=== PATIENT | male | born 1960 | race Caucasian/White ===

== ENCOUNTER 2017-07-28 14:00 | Day surgery (SDC) | payer OTHER ==
[~2017-07-28 14:00] MED LIST: ALPR.25 PO; ANTIBIOTIC; ASPI325 PO; ASPI81CH PO; CALCIUM-MAGNES1 EAC2 PO; CENTRUM MEN'S1 EACH PO; CENTRUM SILVER1 EAC2 PO; CEPH500 PO; Cleocin HCl300 MG PO; FURO40 PO; HYDR1TAB94 PO; K-Dur20 MEQ PO; LIDO4TS50 TOP; METO25 PO; METO50 PO; Norco 5-325 Ta1 EACH PO; XARELTO20 MG PO
== END 2017-07-28 23:32 | disposition home or self-care (01) ==
LOC: WOUND 14:00
PROC: 2W1RX6Z Compression of Left Lower Leg using Pressure Dressing (ICD-10-PCS; principal; 2017-07-28)
DX: Z48.00 Encounter for change or removal of nonsurgical wound dressing (principal); L97.821 Non-pressure chronic ulcer of other part of left lower leg limited to breakdown of skin; I87.2 Venous insufficiency (chronic) (peripheral); L03.116 Cellulitis of left lower limb; I70.202 Unspecified atherosclerosis of native arteries of extremities, left leg
CPT/HCPCS: G0463

== ENCOUNTER 2017-08-01 15:28 | Day surgery (SDC) | payer OTHER | END 2017-08-01 15:55 | disposition home or self-care (01) | LOC: ATC 15:28 | DX: Z48.00 Encounter for change or removal of nonsurgical wound dressing (principal); L97.821 Non-pressure chronic ulcer of other part of left lower leg limited to breakdown of skin; I87.2 Venous insufficiency (chronic) (peripheral); L03.116 Cellulitis of left lower limb; I70.202 Unspecified atherosclerosis of native arteries of extremities, left leg; I48.91 Unspecified atrial fibrillation; I82.502 Chronic embolism and thrombosis of unspecified deep veins of left lower extremity; Z79.01 Long term (current) use of anticoagulants | CPT/HCPCS: 99212 ==

== ENCOUNTER 2017-08-04 13:42 | Day surgery (SDC) | payer OTHER | END 2017-08-04 17:07 | disposition home or self-care (01) | LOC: WOUND 13:42 | PROC: 2W1RX6Z Compression of Left Lower Leg using Pressure Dressing (ICD-10-PCS; principal; 2017-08-04) | DX: Z48.00 Encounter for change or removal of nonsurgical wound dressing (principal); L97.821 Non-pressure chronic ulcer of other part of left lower leg limited to breakdown of skin; I87.2 Venous insufficiency (chronic) (peripheral); L03.116 Cellulitis of left lower limb; I70.202 Unspecified atherosclerosis of native arteries of extremities, left leg; I82.532 Chronic embolism and thrombosis of left popliteal vein; Z79.01 Long term (current) use of anticoagulants ==

== ENCOUNTER 2017-08-11 14:00 | Day surgery (SDC) | payer OTHER | END 2017-08-11 14:35 | disposition home or self-care (01) | LOC: WOUND 14:00 | PROC: 2W1RX6Z Compression of Left Lower Leg using Pressure Dressing (ICD-10-PCS; principal; 2017-08-11) | DX: Z48.00 Encounter for change or removal of nonsurgical wound dressing (principal); L97.821 Non-pressure chronic ulcer of other part of left lower leg limited to breakdown of skin; I87.2 Venous insufficiency (chronic) (peripheral); L03.116 Cellulitis of left lower limb; I70.202 Unspecified atherosclerosis of native arteries of extremities, left leg ==

== ENCOUNTER 2017-08-14 00:19 | Day surgery (SDC) | payer OTHER | END 2017-08-14 22:51 | disposition home or self-care (01) | LOC: ATC 00:19 | DX: L97.821 Non-pressure chronic ulcer of other part of left lower leg limited to breakdown of skin (principal); I87.2 Venous insufficiency (chronic) (peripheral); L03.116 Cellulitis of left lower limb; I70.202 Unspecified atherosclerosis of native arteries of extremities, left leg; I48.91 Unspecified atrial fibrillation; Z79.01 Long term (current) use of anticoagulants ==

== ENCOUNTER 2017-08-14 14:15 | Day surgery (SDC) | payer OTHER | END 2017-08-14 22:51 | disposition home or self-care (01) | LOC: WOUND 14:15 | PROC: 0HBLXZZ Excision of Left Lower Leg Skin, External Approach (ICD-10-PCS; principal; 2017-08-14) | DX: Z48.00 Encounter for change or removal of nonsurgical wound dressing (principal); L97.821 Non-pressure chronic ulcer of other part of left lower leg limited to breakdown of skin; I87.2 Venous insufficiency (chronic) (peripheral); L03.116 Cellulitis of left lower limb; I70.202 Unspecified atherosclerosis of native arteries of extremities, left leg ==

== ENCOUNTER 2017-08-16 00:19 | Day surgery (SDC) | payer OTHER | END 2017-08-16 22:56 | disposition home or self-care (01) | LOC: ATC 00:19 | DX: I87.2 Venous insufficiency (chronic) (peripheral) (principal); L97.821 Non-pressure chronic ulcer of other part of left lower leg limited to breakdown of skin; L03.116 Cellulitis of left lower limb; I70.202 Unspecified atherosclerosis of native arteries of extremities, left leg ==

== ENCOUNTER 2017-08-16 13:56 | Day surgery (SDC) | payer OTHER | END 2017-08-16 14:52 | disposition home or self-care (01) | LOC: WOUND 13:56 | PROC: 2W1RX6Z Compression of Left Lower Leg using Pressure Dressing (ICD-10-PCS; principal; 2017-08-16) | DX: Z48.00 Encounter for change or removal of nonsurgical wound dressing (principal); L97.821 Non-pressure chronic ulcer of other part of left lower leg limited to breakdown of skin; I87.2 Venous insufficiency (chronic) (peripheral); L03.116 Cellulitis of left lower limb; I70.202 Unspecified atherosclerosis of native arteries of extremities, left leg ==

== ENCOUNTER 2017-08-18 14:00 | Day surgery (SDC) | payer OTHER | END 2017-08-18 17:17 | disposition home or self-care (01) | LOC: WOUND 14:00 | DX: Z48.00 Encounter for change or removal of nonsurgical wound dressing (principal); L97.821 Non-pressure chronic ulcer of other part of left lower leg limited to breakdown of skin; I87.2 Venous insufficiency (chronic) (peripheral); L03.116 Cellulitis of left lower limb; I70.202 Unspecified atherosclerosis of native arteries of extremities, left leg; I82.532 Chronic embolism and thrombosis of left popliteal vein; Z79.01 Long term (current) use of anticoagulants ==

== ENCOUNTER 2017-08-22 11:15 | Day surgery (SDC) | payer OTHER | END 2017-08-22 12:56 | disposition home or self-care (01) | LOC: WOUND 11:15 | PROC: 2W1RX6Z Compression of Left Lower Leg using Pressure Dressing (ICD-10-PCS; principal; 2017-08-22) | DX: Z48.00 Encounter for change or removal of nonsurgical wound dressing (principal); I87.2 Venous insufficiency (chronic) (peripheral); L03.116 Cellulitis of left lower limb; I70.202 Unspecified atherosclerosis of native arteries of extremities, left leg; L97.822 Non-pressure chronic ulcer of other part of left lower leg with fat layer exposed | CPT/HCPCS: G0463 ==

== ENCOUNTER 2017-08-28 00:03 | Day surgery (SDC) | payer OTHER | END 2017-08-28 22:47 | disposition home or self-care (01) | LOC: WOUND 00:03 | PROC: 2W1RX6Z Compression of Left Lower Leg using Pressure Dressing (ICD-10-PCS; principal; 2017-08-28) | DX: Z48.00 Encounter for change or removal of nonsurgical wound dressing (principal); L97.821 Non-pressure chronic ulcer of other part of left lower leg limited to breakdown of skin; I87.2 Venous insufficiency (chronic) (peripheral); L03.116 Cellulitis of left lower limb; I70.202 Unspecified atherosclerosis of native arteries of extremities, left leg ==

== ENCOUNTER 2017-09-01 00:49 | Day surgery (SDC) | payer OTHER | END 2017-09-01 23:17 | disposition home or self-care (01) | LOC: WOUND 00:49 | PROC: 0HBLXZZ Excision of Left Lower Leg Skin, External Approach (ICD-10-PCS; principal; 2017-09-01) | DX: Z48.00 Encounter for change or removal of nonsurgical wound dressing (principal); L97.821 Non-pressure chronic ulcer of other part of left lower leg limited to breakdown of skin; I87.2 Venous insufficiency (chronic) (peripheral); L03.116 Cellulitis of left lower limb; I70.202 Unspecified atherosclerosis of native arteries of extremities, left leg; I82.532 Chronic embolism and thrombosis of left popliteal vein; Z79.01 Long term (current) use of anticoagulants | CPT/HCPCS: 36415; 80053; 84134; 85027; 85651; 86140; 87070; 87147; 87205; G0463 ==

== ENCOUNTER 2017-09-08 13:30 | Day surgery (SDC) | payer OTHER | END 2017-09-08 15:59 | disposition home or self-care (01) | LOC: WOUND 13:30 | PROC: 2W1RX6Z Compression of Left Lower Leg using Pressure Dressing (ICD-10-PCS; principal; 2017-09-08) | DX: Z48.00 Encounter for change or removal of nonsurgical wound dressing (principal); L97.821 Non-pressure chronic ulcer of other part of left lower leg limited to breakdown of skin; I87.2 Venous insufficiency (chronic) (peripheral); L03.116 Cellulitis of left lower limb; I70.202 Unspecified atherosclerosis of native arteries of extremities, left leg ==

== ENCOUNTER 2017-09-11 00:13 | Day surgery (SDC) | payer OTHER | END 2017-09-11 14:34 | disposition home or self-care (01) | LOC: WOUND 00:13 | PROC: 0HBLXZZ Excision of Left Lower Leg Skin, External Approach (ICD-10-PCS; principal; 2017-09-11) | DX: Z48.00 Encounter for change or removal of nonsurgical wound dressing (principal); L97.821 Non-pressure chronic ulcer of other part of left lower leg limited to breakdown of skin; I87.2 Venous insufficiency (chronic) (peripheral); L03.116 Cellulitis of left lower limb; I70.202 Unspecified atherosclerosis of native arteries of extremities, left leg; I89.0 Lymphedema, not elsewhere classified ==

== ENCOUNTER 2017-09-18 00:04 | Day surgery (SDC) | payer OTHER | END 2017-09-18 11:55 | disposition home or self-care (01) | LOC: WOUND 00:04 | PROC: 0HBLXZZ Excision of Left Lower Leg Skin, External Approach (ICD-10-PCS; principal; 2017-09-18) | PROC: 2W1RX6Z Compression of Left Lower Leg using Pressure Dressing (ICD-10-PCS; principal; 2017-09-18) | DX: Z48.00 Encounter for change or removal of nonsurgical wound dressing (principal); L97.821 Non-pressure chronic ulcer of other part of left lower leg limited to breakdown of skin; I87.2 Venous insufficiency (chronic) (peripheral); L03.116 Cellulitis of left lower limb; I70.202 Unspecified atherosclerosis of native arteries of extremities, left leg ==

== ENCOUNTER 2017-09-25 | Day surgery (SDC) | END 2017-09-25 13:16 | disposition home or self-care (01) ==

== ENCOUNTER 2017-10-02 10:27 | Day surgery (SDC) | payer OTHER | END 2017-10-02 22:50 | disposition home or self-care (01) | LOC: WOUND 10:27 | PROC: 2W1RX6Z Compression of Left Lower Leg using Pressure Dressing (ICD-10-PCS; principal; 2017-10-02) | DX: L97.821 Non-pressure chronic ulcer of other part of left lower leg limited to breakdown of skin (principal); I87.2 Venous insufficiency (chronic) (peripheral); L03.116 Cellulitis of left lower limb; I70.202 Unspecified atherosclerosis of native arteries of extremities, left leg; Z79.01 Long term (current) use of anticoagulants ==

== ENCOUNTER 2017-10-03 03:34 | Day surgery (SDC) | payer OTHER | END 2017-10-03 23:04 | disposition home or self-care (01) | LOC: WOUND 03:34 | PROC: 0HBLXZZ Excision of Left Lower Leg Skin, External Approach (ICD-10-PCS; principal; 2017-10-03) | DX: L97.821 Non-pressure chronic ulcer of other part of left lower leg limited to breakdown of skin (principal); I87.2 Venous insufficiency (chronic) (peripheral); L03.116 Cellulitis of left lower limb; I70.202 Unspecified atherosclerosis of native arteries of extremities, left leg | CPT/HCPCS: G0463 ==

== ENCOUNTER 2017-10-09 10:27 | Day surgery (SDC) | payer OTHER | END 2017-10-09 23:03 | disposition home or self-care (01) | LOC: WOUND 10:27 | PROC: 0HBLXZZ Excision of Left Lower Leg Skin, External Approach (ICD-10-PCS; principal; 2017-10-09) | DX: L97.821 Non-pressure chronic ulcer of other part of left lower leg limited to breakdown of skin (principal); I87.2 Venous insufficiency (chronic) (peripheral); L03.116 Cellulitis of left lower limb; I70.202 Unspecified atherosclerosis of native arteries of extremities, left leg ==

== ENCOUNTER 2017-10-16 10:24 | Day surgery (SDC) | payer OTHER | END 2017-10-16 16:49 | disposition home or self-care (01) | LOC: WOUND 10:24 | PROC: 0HBLXZZ Excision of Left Lower Leg Skin, External Approach (ICD-10-PCS; principal; 2017-10-16) | DX: L97.821 Non-pressure chronic ulcer of other part of left lower leg limited to breakdown of skin (principal); I87.2 Venous insufficiency (chronic) (peripheral); L03.116 Cellulitis of left lower limb; I70.202 Unspecified atherosclerosis of native arteries of extremities, left leg ==

== ENCOUNTER 2017-10-23 00:36 | Day surgery (SDC) | payer OTHER | END 2017-10-23 11:45 | disposition home or self-care (01) | LOC: WOUND 00:36 | PROC: 2W1RX6Z Compression of Left Lower Leg using Pressure Dressing (ICD-10-PCS; principal; 2017-10-23) | DX: Z48.00 Encounter for change or removal of nonsurgical wound dressing (principal); L03.116 Cellulitis of left lower limb; I82.532 Chronic embolism and thrombosis of left popliteal vein; I82.592 Chronic embolism and thrombosis of other specified deep vein of left lower extremity; L97.821 Non-pressure chronic ulcer of other part of left lower leg limited to breakdown of skin; I70.202 Unspecified atherosclerosis of native arteries of extremities, left leg; Z79.01 Long term (current) use of anticoagulants ==

== ENCOUNTER 2017-10-31 00:27 | Day surgery (SDC) | payer OTHER | END 2017-10-31 11:31 | disposition home or self-care (01) | LOC: WOUND 00:27 | PROC: 0HBLXZZ Excision of Left Lower Leg Skin, External Approach (ICD-10-PCS; principal; 2017-10-31) | DX: L97.822 Non-pressure chronic ulcer of other part of left lower leg with fat layer exposed (principal); I87.2 Venous insufficiency (chronic) (peripheral); L03.116 Cellulitis of left lower limb; I70.202 Unspecified atherosclerosis of native arteries of extremities, left leg | CPT/HCPCS: G0463 ==

== ENCOUNTER 2017-11-06 10:59 | Day surgery (SDC) | payer OTHER | END 2017-11-06 12:06 | disposition home or self-care (01) | LOC: WOUND 10:59 | PROC: 0HBLXZZ Excision of Left Lower Leg Skin, External Approach (ICD-10-PCS; principal; 2017-11-06) | PROC: 2W1RX6Z Compression of Left Lower Leg using Pressure Dressing (ICD-10-PCS; principal; 2017-11-06) | DX: L97.822 Non-pressure chronic ulcer of other part of left lower leg with fat layer exposed (principal); I87.2 Venous insufficiency (chronic) (peripheral); L03.116 Cellulitis of left lower limb; I70.202 Unspecified atherosclerosis of native arteries of extremities, left leg ==

== ENCOUNTER 2017-11-20 11:10 | Day surgery (SDC) | payer OTHER | END 2017-11-20 23:05 | disposition home or self-care (01) | LOC: WOUND 11:10 | PROC: 2W1RX6Z Compression of Left Lower Leg using Pressure Dressing (ICD-10-PCS; principal; 2017-11-20) | PROC: 0HBLXZZ Excision of Left Lower Leg Skin, External Approach (ICD-10-PCS; principal; 2017-11-20) | DX: L97.821 Non-pressure chronic ulcer of other part of left lower leg limited to breakdown of skin (principal); I87.2 Venous insufficiency (chronic) (peripheral); L03.116 Cellulitis of left lower limb; I70.202 Unspecified atherosclerosis of native arteries of extremities, left leg | CPT/HCPCS: G0463 ==

== ENCOUNTER 2017-11-27 11:08 | Day surgery (SDC) | payer OTHER | END 2017-11-27 22:36 | disposition home or self-care (01) | LOC: WOUND 11:08 | PROC: 0HBLXZZ Excision of Left Lower Leg Skin, External Approach (ICD-10-PCS; principal; 2017-11-27) | DX: L97.821 Non-pressure chronic ulcer of other part of left lower leg limited to breakdown of skin (principal); I87.2 Venous insufficiency (chronic) (peripheral); L03.116 Cellulitis of left lower limb; I70.202 Unspecified atherosclerosis of native arteries of extremities, left leg ==

== ENCOUNTER 2017-12-04 10:59 | Day surgery (SDC) | payer OTHER | END 2017-12-04 22:40 | disposition home or self-care (01) | LOC: WOUND 10:59 | PROC: 0HBLXZZ Excision of Left Lower Leg Skin, External Approach (ICD-10-PCS; principal; 2017-12-04) | DX: L97.821 Non-pressure chronic ulcer of other part of left lower leg limited to breakdown of skin (principal); I87.2 Venous insufficiency (chronic) (peripheral); L03.116 Cellulitis of left lower limb ==

== ENCOUNTER 2017-12-11 09:14 | Day surgery (SDC) | payer OTHER | END 2017-12-11 22:45 | disposition home or self-care (01) | LOC: WOUND 09:14 | PROC: 0HBLXZZ Excision of Left Lower Leg Skin, External Approach (ICD-10-PCS; principal; 2017-12-11) | DX: L97.222 Non-pressure chronic ulcer of left calf with fat layer exposed (principal); I87.2 Venous insufficiency (chronic) (peripheral); L03.116 Cellulitis of left lower limb; I70.202 Unspecified atherosclerosis of native arteries of extremities, left leg | CPT/HCPCS: G0463 ==

== ENCOUNTER 2017-12-18 11:14 | Day surgery (SDC) | payer OTHER | END 2017-12-18 11:57 | disposition home or self-care (01) | LOC: WOUND 11:14 | PROC: 2W1MX6Z Compression of Left Lower Extremity using Pressure Dressing (ICD-10-PCS; principal; 2017-12-18) | DX: L97.229 Non-pressure chronic ulcer of left calf with unspecified severity (principal); L97.821 Non-pressure chronic ulcer of other part of left lower leg limited to breakdown of skin; L03.116 Cellulitis of left lower limb; I87.2 Venous insufficiency (chronic) (peripheral) | CPT/HCPCS: G0463 ==

== ENCOUNTER 2017-12-26 11:15 | Day surgery (SDC) | payer OTHER | END 2017-12-26 12:09 | disposition home or self-care (01) | LOC: WOUND 11:15 | PROC: 2W1MX6Z Compression of Left Lower Extremity using Pressure Dressing (ICD-10-PCS; principal; 2017-12-26) | PROC: 0HBLXZZ Excision of Left Lower Leg Skin, External Approach (ICD-10-PCS; principal; 2017-12-26) | DX: L97.228 Non-pressure chronic ulcer of left calf with other specified severity (principal); I87.2 Venous insufficiency (chronic) (peripheral); L03.116 Cellulitis of left lower limb; I70.202 Unspecified atherosclerosis of native arteries of extremities, left leg | CPT/HCPCS: G0463 ==

== ENCOUNTER 2018-01-01 11:15 | Day surgery (SDC) | payer OTHER | END 2018-01-01 13:50 | disposition home or self-care (01) | LOC: WOUND 11:15 | PROC: 2W1RX6Z Compression of Left Lower Leg using Pressure Dressing (ICD-10-PCS; principal; 2018-01-01) | DX: L97.821 Non-pressure chronic ulcer of other part of left lower leg limited to breakdown of skin (principal); I87.2 Venous insufficiency (chronic) (peripheral); L03.116 Cellulitis of left lower limb | CPT/HCPCS: G0463 ==

== ENCOUNTER 2018-01-08 11:15 | Day surgery (SDC) | payer OTHER | END 2018-01-08 11:59 | disposition home or self-care (01) | LOC: WOUND 11:15 | PROC: 2W1RX6Z Compression of Left Lower Leg using Pressure Dressing (ICD-10-PCS; principal; 2018-01-08) | PROC: 0HBLXZZ Excision of Left Lower Leg Skin, External Approach (ICD-10-PCS; principal; 2018-01-08) | DX: L97.822 Non-pressure chronic ulcer of other part of left lower leg with fat layer exposed (principal); I87.2 Venous insufficiency (chronic) (peripheral); L03.116 Cellulitis of left lower limb; I70.202 Unspecified atherosclerosis of native arteries of extremities, left leg ==

== ENCOUNTER 2018-01-15 11:01 | Day surgery (SDC) | payer OTHER | END 2018-01-15 23:13 | disposition home or self-care (01) | LOC: WOUND 11:01 | PROC: 2W1RX6Z Compression of Left Lower Leg using Pressure Dressing (ICD-10-PCS; principal; 2018-01-15) | PROC: 0HBLXZZ Excision of Left Lower Leg Skin, External Approach (ICD-10-PCS; principal; 2018-01-15) | DX: L97.822 Non-pressure chronic ulcer of other part of left lower leg with fat layer exposed (principal); I87.2 Venous insufficiency (chronic) (peripheral); L03.116 Cellulitis of left lower limb; I70.202 Unspecified atherosclerosis of native arteries of extremities, left leg ==

== ENCOUNTER 2018-01-22 11:01 | Day surgery (SDC) | payer OTHER | END 2018-01-22 13:52 | disposition home or self-care (01) | LOC: WOUND 11:01 | PROC: 0HBLXZZ Excision of Left Lower Leg Skin, External Approach (ICD-10-PCS; principal; 2018-01-22) | PROC: 2W1RX6Z Compression of Left Lower Leg using Pressure Dressing (ICD-10-PCS; principal; 2018-01-22) | DX: L97.822 Non-pressure chronic ulcer of other part of left lower leg with fat layer exposed (principal); I87.2 Venous insufficiency (chronic) (peripheral); L03.116 Cellulitis of left lower limb; I70.202 Unspecified atherosclerosis of native arteries of extremities, left leg ==

== ENCOUNTER 2018-01-29 12:26 | Day surgery (SDC) | payer OTHER | END 2018-01-29 16:01 | disposition home or self-care (01) | LOC: WOUND 12:26 | PROC: 2W1RX6Z Compression of Left Lower Leg using Pressure Dressing (ICD-10-PCS; principal; 2018-01-29) | DX: Z48.00 Encounter for change or removal of nonsurgical wound dressing (principal); L97.821 Non-pressure chronic ulcer of other part of left lower leg limited to breakdown of skin; I87.2 Venous insufficiency (chronic) (peripheral); L03.116 Cellulitis of left lower limb; I70.202 Unspecified atherosclerosis of native arteries of extremities, left leg; I82.502 Chronic embolism and thrombosis of unspecified deep veins of left lower extremity; Z79.01 Long term (current) use of anticoagulants ==

== ENCOUNTER 2018-02-05 11:15 | Day surgery (SDC) | payer OTHER | END 2018-02-05 12:35 | disposition home or self-care (01) | LOC: WOUND 11:15 | PROC: 0JBP0ZZ Excision of Left Lower Leg Subcutaneous Tissue and Fascia, Open Approach (ICD-10-PCS; principal; 2018-02-05) | PROC: 2W1RX6Z Compression of Left Lower Leg using Pressure Dressing (ICD-10-PCS; principal; 2018-02-05) | DX: Z48.00 Encounter for change or removal of nonsurgical wound dressing (principal); I70.242 Atherosclerosis of native arteries of left leg with ulceration of calf; L97.222 Non-pressure chronic ulcer of left calf with fat layer exposed; L03.116 Cellulitis of left lower limb; R60.0 Localized edema; I87.2 Venous insufficiency (chronic) (peripheral); I82.532 Chronic embolism and thrombosis of left popliteal vein; Z79.01 Long term (current) use of anticoagulants ==

== ENCOUNTER 2018-02-12 11:15 | Day surgery (SDC) | payer OTHER | END 2018-02-12 12:21 | disposition home or self-care (01) | LOC: WOUND 11:15 | DX: I70.248 Atherosclerosis of native arteries of left leg with ulceration of other part of lower leg (principal); L97.821 Non-pressure chronic ulcer of other part of left lower leg limited to breakdown of skin; L97.822 Non-pressure chronic ulcer of other part of left lower leg with fat layer exposed; L03.116 Cellulitis of left lower limb; I87.2 Venous insufficiency (chronic) (peripheral); R60.0 Localized edema; Z86.718 Personal history of other venous thrombosis and embolism; Z79.01 Long term (current) use of anticoagulants | CPT/HCPCS: G0463 ==

== ENCOUNTER 2018-03-14 00:50 | Day surgery (SDC) | payer OTHER ==
[2018-03-14] MEDS ORDERED: ASPI81CH PO (10:51)
[2018-03-14] MEDS ORDERED: WARF5 PO (10:51)
== END 2018-03-14 11:30 | disposition home or self-care (01) ==
LOC: LAB 00:50 → ATC 00:50
DX: I82.90 Acute embolism and thrombosis of unspecified vein (principal); E66.01 Morbid (severe) obesity due to excess calories; Z79.01 Long term (current) use of anticoagulants
CPT/HCPCS: 36416; 85610; 99214

== ENCOUNTER 2018-03-16 00:25 | Day surgery (SDC) | payer OTHER ==
[~2018-03-16 00:25] MED LIST changes: +WARF5 PO
== END 2018-03-16 15:39 | disposition home or self-care (01) ==
LOC: ATC 00:25
DX: Z48.00 Encounter for change or removal of nonsurgical wound dressing (principal); S81.802D Unspecified open wound, left lower leg, subsequent encounter; Z87.891 Personal history of nicotine dependence; E66.01 Morbid (severe) obesity due to excess calories; Z68.42 Body mass index [BMI] 45.0-49.9, adult; I48.91 Unspecified atrial fibrillation; I50.9 Heart failure, unspecified
CPT/HCPCS: 99213

== ENCOUNTER 2018-03-20 00:07 | Day surgery (SDC) | payer OTHER | END 2018-03-20 11:12 | disposition home or self-care (01) | LOC: ATC 00:07 | DX: Z48.00 Encounter for change or removal of nonsurgical wound dressing (principal); S81.802D Unspecified open wound, left lower leg, subsequent encounter; I50.9 Heart failure, unspecified; I48.91 Unspecified atrial fibrillation; E66.01 Morbid (severe) obesity due to excess calories; Z68.42 Body mass index [BMI] 45.0-49.9, adult; Z86.718 Personal history of other venous thrombosis and embolism; Z87.891 Personal history of nicotine dependence; Z79.899 Other long term (current) drug therapy | CPT/HCPCS: 99212 ==

== ENCOUNTER 2018-03-23 00:14 | Day surgery (SDC) | payer OTHER | END 2018-03-23 22:45 | disposition home or self-care (01) | LOC: ATC 00:14 | DX: Z48.00 Encounter for change or removal of nonsurgical wound dressing (principal); S81.802D Unspecified open wound, left lower leg, subsequent encounter | CPT/HCPCS: 99214 ==

== ENCOUNTER 2018-03-26 01:42 | Day surgery (SDC) | payer OTHER | END 2018-03-26 22:40 | disposition home or self-care (01) | LOC: ATC 01:42 → LAB 01:42 → ATC 14:12 | DX: Z48.00 Encounter for change or removal of nonsurgical wound dressing (principal); S81.802D Unspecified open wound, left lower leg, subsequent encounter; I82.90 Acute embolism and thrombosis of unspecified vein; I50.9 Heart failure, unspecified; I48.91 Unspecified atrial fibrillation; Z79.899 Other long term (current) drug therapy; Z87.891 Personal history of nicotine dependence; E66.01 Morbid (severe) obesity due to excess calories; Z68.42 Body mass index [BMI] 45.0-49.9, adult | CPT/HCPCS: 36416; 85610; 99212 ==

== ENCOUNTER 2018-03-29 00:12 | Day surgery (SDC) | payer OTHER | END 2018-03-29 11:01 | disposition home or self-care (01) | LOC: ATC 00:12 | DX: S81.802D Unspecified open wound, left lower leg, subsequent encounter (principal); Z86.718 Personal history of other venous thrombosis and embolism; R60.0 Localized edema; I73.9 Peripheral vascular disease, unspecified; E66.01 Morbid (severe) obesity due to excess calories; I48.91 Unspecified atrial fibrillation; Z79.01 Long term (current) use of anticoagulants | CPT/HCPCS: 99213 ==

== ENCOUNTER 2018-04-03 00:13 | Day surgery (SDC) | payer OTHER | END 2018-04-03 11:03 | disposition home or self-care (01) | LOC: ATC 00:13 | DX: L97.821 Non-pressure chronic ulcer of other part of left lower leg limited to breakdown of skin (principal); I87.2 Venous insufficiency (chronic) (peripheral); L03.116 Cellulitis of left lower limb; I70.202 Unspecified atherosclerosis of native arteries of extremities, left leg | CPT/HCPCS: 99214 ==

== ENCOUNTER 2018-04-11 15:08 | Day surgery (SDC) | payer OTHER | END 2018-04-11 15:37 | disposition home or self-care (01) | LOC: ATC 15:08 | DX: L97.821 Non-pressure chronic ulcer of other part of left lower leg limited to breakdown of skin (principal); I87.2 Venous insufficiency (chronic) (peripheral); L03.116 Cellulitis of left lower limb; I70.202 Unspecified atherosclerosis of native arteries of extremities, left leg | CPT/HCPCS: 99213 ==

== ENCOUNTER 2018-04-18 14:53 | Day surgery (SDC) | payer OTHER | END 2018-04-18 22:41 | disposition home or self-care (01) | LOC: ATC 14:53 | DX: L97.821 Non-pressure chronic ulcer of other part of left lower leg limited to breakdown of skin (principal); I87.2 Venous insufficiency (chronic) (peripheral); L03.116 Cellulitis of left lower limb; I70.202 Unspecified atherosclerosis of native arteries of extremities, left leg; Z86.718 Personal history of other venous thrombosis and embolism; I48.91 Unspecified atrial fibrillation | CPT/HCPCS: 36416; 85610; 99212 ==

== ENCOUNTER 2018-04-20 00:33 | Day surgery (SDC) | payer OTHER | END 2018-04-20 22:36 | disposition home or self-care (01) | LOC: WOUND 00:33 | DX: L97.222 Non-pressure chronic ulcer of left calf with fat layer exposed (principal); I73.9 Peripheral vascular disease, unspecified; Z86.718 Personal history of other venous thrombosis and embolism; R60.0 Localized edema; I48.2 Chronic atrial fibrillation; I50.20 Unspecified systolic (congestive) heart failure; Z87.891 Personal history of nicotine dependence | CPT/HCPCS: G0463 ==

== ENCOUNTER 2018-04-24 14:00 | Day surgery (SDC) | payer OTHER | END 2018-04-24 15:35 | disposition home or self-care (01) | LOC: WOUND 14:00 | DX: L97.222 Non-pressure chronic ulcer of left calf with fat layer exposed (principal); I73.9 Peripheral vascular disease, unspecified; R60.0 Localized edema; I48.2 Chronic atrial fibrillation; I50.20 Unspecified systolic (congestive) heart failure; Z86.718 Personal history of other venous thrombosis and embolism ==

== ENCOUNTER 2018-04-27 00:14 | Day surgery (SDC) | payer OTHER | END 2018-04-27 22:37 | disposition home or self-care (01) | LOC: WOUND 00:14 | DX: L97.222 Non-pressure chronic ulcer of left calf with fat layer exposed (principal); I73.9 Peripheral vascular disease, unspecified; Z86.718 Personal history of other venous thrombosis and embolism; R60.0 Localized edema; I48.2 Chronic atrial fibrillation; I50.20 Unspecified systolic (congestive) heart failure ==

== ENCOUNTER 2018-05-01 08:58 | Day surgery (SDC) | payer OTHER | END 2018-05-01 22:35 | disposition home or self-care (01) | LOC: WOUND 08:58 | DX: L97.222 Non-pressure chronic ulcer of left calf with fat layer exposed (principal); I73.9 Peripheral vascular disease, unspecified; R60.0 Localized edema; I48.2 Chronic atrial fibrillation; I50.20 Unspecified systolic (congestive) heart failure; Q84.5 Enlarged and hypertrophic nails; Z86.718 Personal history of other venous thrombosis and embolism ==

== ENCOUNTER 2018-05-04 08:03 | Day surgery (SDC) | payer OTHER | END 2018-05-04 22:37 | disposition home or self-care (01) | LOC: WOUND 08:03 | DX: L97.222 Non-pressure chronic ulcer of left calf with fat layer exposed (principal); I73.9 Peripheral vascular disease, unspecified; Z86.718 Personal history of other venous thrombosis and embolism; R60.0 Localized edema; I48.2 Chronic atrial fibrillation; I50.20 Unspecified systolic (congestive) heart failure; Q84.5 Enlarged and hypertrophic nails ==

== ENCOUNTER 2018-05-29 00:16 | Day surgery (SDC) | payer OTHER | END 2018-05-29 22:58 | disposition home or self-care (01) | LOC: WOUND 00:16 | DX: L97.222 Non-pressure chronic ulcer of left calf with fat layer exposed (principal); I73.9 Peripheral vascular disease, unspecified; Z86.718 Personal history of other venous thrombosis and embolism; R60.0 Localized edema; I48.2 Chronic atrial fibrillation; I50.20 Unspecified systolic (congestive) heart failure ==

== ENCOUNTER 2018-07-17 00:10 | Day surgery (SDC) | payer OTHER | END 2018-07-17 22:38 | disposition home or self-care (01) | LOC: WOUND 00:10 | DX: L97.222 Non-pressure chronic ulcer of left calf with fat layer exposed (principal); L97.821 Non-pressure chronic ulcer of other part of left lower leg limited to breakdown of skin; I73.9 Peripheral vascular disease, unspecified; Z86.718 Personal history of other venous thrombosis and embolism; R60.0 Localized edema; I48.2 Chronic atrial fibrillation; I50.20 Unspecified systolic (congestive) heart failure ==

== ENCOUNTER 2018-07-20 00:14 | Day surgery (SDC) | payer OTHER | END 2018-07-20 22:45 | disposition home or self-care (01) | LOC: WOUND 00:14 | DX: L97.222 Non-pressure chronic ulcer of left calf with fat layer exposed (principal); S81.802A Unspecified open wound, left lower leg, initial encounter; I73.9 Peripheral vascular disease, unspecified; Z86.718 Personal history of other venous thrombosis and embolism; R60.0 Localized edema; I48.2 Chronic atrial fibrillation; I50.20 Unspecified systolic (congestive) heart failure | CPT/HCPCS: G0463 ==

== ENCOUNTER 2018-07-27 13:09 | Day surgery (SDC) | payer OTHER | END 2018-07-27 23:07 | disposition home or self-care (01) | LOC: WOUND 13:09 | DX: L97.222 Non-pressure chronic ulcer of left calf with fat layer exposed (principal); L97.821 Non-pressure chronic ulcer of other part of left lower leg limited to breakdown of skin; I73.9 Peripheral vascular disease, unspecified; Z86.718 Personal history of other venous thrombosis and embolism; R60.0 Localized edema; I48.2 Chronic atrial fibrillation; I50.20 Unspecified systolic (congestive) heart failure ==

== ENCOUNTER 2018-08-03 13:14 | Day surgery (SDC) | payer OTHER | END 2018-08-03 22:43 | disposition home or self-care (01) | LOC: WOUND 13:14 | DX: L97.222 Non-pressure chronic ulcer of left calf with fat layer exposed (principal); S81.802D Unspecified open wound, left lower leg, subsequent encounter; I73.9 Peripheral vascular disease, unspecified; R60.0 Localized edema; I48.2 Chronic atrial fibrillation; I50.20 Unspecified systolic (congestive) heart failure; Z86.718 Personal history of other venous thrombosis and embolism ==

== ENCOUNTER 2018-08-10 00:13 | Day surgery (SDC) | payer OTHER | END 2018-08-10 22:51 | disposition home or self-care (01) | LOC: WOUND 00:13 | DX: L97.222 Non-pressure chronic ulcer of left calf with fat layer exposed (principal); L97.821 Non-pressure chronic ulcer of other part of left lower leg limited to breakdown of skin; I73.9 Peripheral vascular disease, unspecified; Z86.718 Personal history of other venous thrombosis and embolism; R60.0 Localized edema ==

== ENCOUNTER 2018-08-17 00:58 | Day surgery (SDC) | payer OTHER | END 2018-08-17 23:52 | disposition home or self-care (01) | LOC: WOUND 00:58 | PROC: 0HBLXZZ Excision of Left Lower Leg Skin, External Approach (ICD-10-PCS; principal; 2018-08-17) | DX: L97.222 Non-pressure chronic ulcer of left calf with fat layer exposed (principal); L97.822 Non-pressure chronic ulcer of other part of left lower leg with fat layer exposed; L97.929 Non-pressure chronic ulcer of unspecified part of left lower leg with unspecified severity; S81.802A Unspecified open wound, left lower leg, initial encounter; I73.9 Peripheral vascular disease, unspecified ==

== ENCOUNTER 2018-08-24 15:11 | Inpatient (IN) | payer OTHER ==
[~2018-08-24] VITALS: Ht 188 cm; Wt 173.5 kg
[2018-08-24 15:59] LABS: BASOPHILS ABSOLUTE AUTO 0.07 K/mm3 (0.00-0.23); BASOPHILS PERCENT AUTO 1 % (0-2); EOSINOPHILS ABSOLUTE AUTO 0.18 K/mm3 (0.00-0.68); EOSINOPHILS PERCENT AUTO 3 % (0-6); Hematocrit 43.4 % (37.0-53.0); IMMATURE GRAN ABSOLUTE AUTO 0.01 K/mm3 (0.00-0.10); IMMATURE GRAN PERCENT AUTO 0 % (0-1); LYMPHOCYTES ABSOLUTE AUTO 1.64 K/mm3 (0.84-5.20); LYMPHOCYTES PERCENT AUTO 24 % (21-46); MONOCYTES ABSOLUTE AUTO 0.52 K/mm3 (0.16-1.47); MONOCYTES PERCENT AUTO 8 % (4-13); Mean Corpuscular HGB 34.5 pg (26.0-34.0); Mean Corpuscular HGB Conc 34.6 g/dL (31.5-36.5); Mean Corpuscular Volume 100 fL (80-100); Mean Platelet Volume 10.7 fL (9.1-12.4); NEUTROPHILS ABSOLUTE AUTO 4.51 K/mm3 (1.96-9.15); NEUTROPHILS PERCENT AUTO 65 % (41-73); Platelet Count 210 K/mm3 (150-400); RDW Standard Deviation 44.6 fL (35.1-46.3); Red Blood Cell Count 4.35 M/mm3 (4.30-5.90); White Blood Cell Count 6.93 K/mm3 (4.00-11.30)
[2018-08-24 16:18] LABS: Alanine Aminotransfer (ALT/SGP 26 U/L (12-78); Albumin, Blood 3.3 g/dL (3.4-5.0); Albumin/Globulin Ratio 0.7 (0.8-1.8); Alk Phos 122 U/L (50-136); Anion Gap 6 mmol/L (6-16); Aspartate Aminotrans (AST/SGOT 38 U/L (12-37); Blood Urea Nitrogen 9 mg/dL (8-24); Bun/Creatinine Ratio 10.2 (12.0-20.0); CO2, Blood 30 mmol/L (21-32); Calcium, Blood 8.4 mg/dL (8.5-10.1); Chloride, Blood 105 mmol/L (98-108); Creatinine, Blood 0.88 mg/dL (0.60-1.20); Globulin, Blood 4.9 g/dL (2.2-4.0); Glomerular Filtration Rate >60 (60-); Glucose, Blood 91 mg/dL (70-99); Potassium, Blood 4.7 mmol/L (3.5-5.5); Sodium, Blood 141 mmol/L (136-145); Total Protein, Blood 8.2 g/dL (6.4-8.2)
[2018-08-24 17:53] LABS: International Normalized Ratio 2.6; Prothrombin Time Results 25.3 Sec (9.7-11.5)
[2018-08-25 05:34] LABS: BASOPHILS ABSOLUTE AUTO 0.04 K/mm3 (0.00-0.23); BASOPHILS PERCENT AUTO 1 % (0-2); EOSINOPHILS ABSOLUTE AUTO 0.12 K/mm3 (0.00-0.68); EOSINOPHILS PERCENT AUTO 2 % (0-6); Hematocrit 42.1 % (37.0-53.0); IMMATURE GRAN ABSOLUTE AUTO 0.02 K/mm3 (0.00-0.10); IMMATURE GRAN PERCENT AUTO 0 % (0-1); LYMPHOCYTES ABSOLUTE AUTO 1.46 K/mm3 (0.84-5.20); LYMPHOCYTES PERCENT AUTO 20 % (21-46); MONOCYTES ABSOLUTE AUTO 0.66 K/mm3 (0.16-1.47); MONOCYTES PERCENT AUTO 9 % (4-13); Mean Corpuscular HGB 33.1 pg (26.0-34.0); Mean Corpuscular HGB Conc 33.3 g/dL (31.5-36.5); Mean Corpuscular Volume 100 fL (80-100); Mean Platelet Volume 10.8 fL (9.1-12.4); NEUTROPHILS PERCENT AUTO 68 % (41-73); Platelet Count 198 K/mm3 (150-400); RDW Standard Deviation 43.5 fL (35.1-46.3); Red Blood Cell Count 4.23 M/mm3 (4.30-5.90)
[2018-08-25 05:48] LABS: International Normalized Ratio 2.3; Prothrombin Time Results 22.6 Sec (9.7-11.5)
[2018-08-25 05:51] LABS: Anion Gap 6 mmol/L (6-16); Blood Urea Nitrogen 12 mg/dL (8-24); Bun/Creatinine Ratio 12.8 (12.0-20.0); CO2, Blood 32 mmol/L (21-32); Calcium, Blood 8.4 mg/dL (8.5-10.1); Chloride, Blood 103 mmol/L (98-108); Creatinine, Blood 0.94 mg/dL (0.60-1.20); Glomerular Filtration Rate >60 (60-); Glucose, Blood 94 mg/dL (70-99); Sodium, Blood 141 mmol/L (136-145)
--- NOTE | 2018-08-25 06:26 | NUR ---
SHIFT SUMMARY ARRIVED TO MEDICAL FLOOR @ 2014 VIA WHEELCHAIR. SELF TRANSFER FROM WHEELCHAIR TO BED. ORIENTED TO ROOM AND CALL SYSTEM. INDEPENDENT IN THE ROOM. A/O X4, ABLE TO MAKE NEEDS KNOWN. COOPERATIVE WITH CARE. ANSWERS QUESTIONS APPROPRIATELY. C/O PAIN/DISCOMFORT TO LLE WHILE ELEVATED; MEDICATED PER EMAR. PICTURES TAKEN OF WOUNDS TO LLE. WOUND CARE COMPLETED AND WRAPPED (SEE PROCESS INTERVENTION DOCUMENTATION). NO ACUTE CHANGES NOTED OVERNIGHT. VSS WITH PULSE ELEVATED. WCTM. BED IN LOWEST POSITION. CALL LIGHT AND BELONGING IN REACH. REPORT TO ONCOMING RN.
--- NOTE | 2018-08-25 17:26 | NUR ---
PT AOX4 AND COOPERATIVE OF ALL CARE. PT RESTING IN BED, BUT WAS UP TO AMBULATE TODAY. PT NEEDED LE REWRAPPED ON L LEG DUE TO DRAINAGE. PT TOLERATED WELL. NO PAIN REPORTED AT THIS TIME. NO DISTRESS NOTED.
[2018-08-26 05:25] LABS: BASOPHILS ABSOLUTE AUTO 0.05 K/mm3 (0.00-0.23); BASOPHILS PERCENT AUTO 1 % (0-2); EOSINOPHILS ABSOLUTE AUTO 0.23 K/mm3 (0.00-0.68); EOSINOPHILS PERCENT AUTO 3 % (0-6); Hematocrit 43.3 % (37.0-53.0); Hemoglobin 14.7 g/dL (13.5-17.5); IMMATURE GRAN ABSOLUTE AUTO 0.02 K/mm3 (0.00-0.10); IMMATURE GRAN PERCENT AUTO 0 % (0-1); LYMPHOCYTES ABSOLUTE AUTO 2.06 K/mm3 (0.84-5.20); LYMPHOCYTES PERCENT AUTO 28 % (21-46); MONOCYTES ABSOLUTE AUTO 0.58 K/mm3 (0.16-1.47); MONOCYTES PERCENT AUTO 8 % (4-13); Mean Corpuscular HGB 33.3 pg (26.0-34.0); Mean Corpuscular HGB Conc 33.9 g/dL (31.5-36.5); Mean Corpuscular Volume 98 fL (80-100); Mean Platelet Volume 10.6 fL (9.1-12.4); NEUTROPHILS ABSOLUTE AUTO 4.44 K/mm3 (1.96-9.15); NEUTROPHILS PERCENT AUTO 60 % (41-73); Platelet Count 200 K/mm3 (150-400); RDW Coefficient Variation 11.9 % (11.7-14.2); RDW Standard Deviation 42.9 fL (35.1-46.3); Red Blood Cell Count 4.42 M/mm3 (4.30-5.90); White Blood Cell Count 7.38 K/mm3 (4.00-11.30)
--- NOTE | 2018-08-26 05:41 | NUR ---
SHIFT SUMMARY A/O X4, ABLE TO MAKE NEEDS KNOWN. COOPERATIVE WITH CARE. ANSWERS QUESTIONS APPROPRIATELY. INDPENDENT IN THE ROOM; TAKES WALKS IN HALLWAY. NOTICABLY SOB ON RETURN. LLE NOTICABLY LARGER THAN RLE. NO ACUTE CHANGES OVERNIGHT. APPEARED TO REST MUCH OF SHIFT. BED IN LOWEST POSITION. CALL LIGHT AND BELONGINGS WITHIN REACH. WCTM. REPORT TO ONCOMING RN.
[2018-08-26 05:55] LABS: Anion Gap 7 mmol/L (6-16); Blood Urea Nitrogen 13 mg/dL (8-24); Bun/Creatinine Ratio 14.1 (12.0-20.0); CO2, Blood 31 mmol/L (21-32); Calcium, Blood 8.2 mg/dL (8.5-10.1); Chloride, Blood 103 mmol/L (98-108); Creatinine, Blood 0.92 mg/dL (0.60-1.20); Glomerular Filtration Rate >60 (60-); Glucose, Blood 98 mg/dL (70-99); Potassium, Blood 3.7 mmol/L (3.5-5.5); Sodium, Blood 141 mmol/L (136-145)
[2018-08-26 13:47] LABS: International Normalized Ratio 1.65; Prothrombin Time Results 16.7 Sec (9.7-11.5)
--- NOTE | 2018-08-26 14:34 | NUR ---
TELEMETRY DR. JOYNER AGREED TO PUT THE PT ON TELEMETRY AFTER HIS EKG SHOWED A RATE OF 112. METOPEROL DOSE WILL BE INCREASED TONIGHT AND FROM HEAR ON OUT, SO TELE MAY NOT BE NEEDED ONCE RATE IS CONTROLLED. DR. PENA CONSULTED BY ER PHYSICIAN FOR VASCULAR SPECIALTY.
--- NOTE | 2018-08-26 14:46 | NUR ---
CARDIOLOGY CONSULT DR. JOYNER CALLED TO VERIFY THAT THERE WAS A CARDIOLOGY CONSULT FOR PT. DR. JOYNER EXPLAINED THAT THE ER PHYSICIAN CONSULTED WITH DR. PENA FOR THE PT VASCULAR INSUFFICENCY WITHIN THE LEGS.
--- NOTE | 2018-08-26 15:28 | NUR ---
Echocardiogram using 0.6ml of Definity contrast.
--- NOTE | 2018-08-26 15:31 | NUR ---
PER BUSINESS AFFAIRS MANAGER PER BUSINESS AFFAIRS MANAGERLILIANA. PT IS IN AFIB WITH A RATE IN THE 120S. PT EDUCATED ON REASON FOR HEART MONITOR.
--- NOTE | 2018-08-26 16:32 | NUR ---
160 HEARTRATE CALL FROM [place] AT 1620 THAT PT HEART RATE WAS IN THE 160S. PT CONTINUES TO BE IN AFIB. DR. JOYNER AWARE & ORDERED FOR EVENING DOSE OF METOPEROL TO BE GIVEN NOW. AWAITING VERIFICATION. PT VITALS RETAKEN. WILL CONTINUE TO MONITOR. PT DENIES CHEST PAIN & SOB
--- NOTE | 2018-08-26 17:12 | NUR ---
SHIFT SUMMARY PT HAS BEEN IND IN ROOM & HALLWAY THIS SHIFT. DIRECTOR WORKERS COMPENSATION STATED PT IS IN AFIB WITH A RATE IN THE 120-130S. DIRECTOR WORKERS COMPENSATION STATED THAT THE PTS RATE IS REACHING UP OF 160S PERIODICALLY. PT CONTINUES TO DENY CHEST PAIN OR SOB. PT STATES HE "FEELS FINE." PT ALREADY GIVEN EVENING DOSE OF 100MG METOPEROL. PT DRESSINGS ARE CLEAN & DRY AT THIS TIME. PT IN THE NEG FOR I&OS. NO OTHER CHANGES IN ASSESSMENT AT THIS TIME. OTHER VITALS STABLE. WILL CONTINUE TO MONITOR UNTIL TURNOVER IS COMPLETE. DR. JOYNER AWARE OF HEART RATE.
--- NOTE | 2018-08-27 00:57 | NUR ---
VACUUM BOTTLE ASSEMBLER INFORMED RATE OF 140'S 150'S. PT WAS UP TO THE BATHROOM AT THAT T MICHELL. CURENTLY RESTING, RATE HAS GONE DOWN SLIGHTLY. WILL ENCOURAGE PT TO RELAX AND KEEP LEGS ELEVATED. WILL INFORM DOCTOR
[2018-08-27 05:10] LABS: International Normalized Ratio 1.62; Prothrombin Time Results 16.4 Sec (9.7-11.5)
--- NOTE | 2018-08-27 05:33 | NUR ---
PT DRESSING CHANGED TODAY. LEG ELEVATED. REDDENED AND WARM BLE. LINE DRWN TO OUTLINE BOARDER TODAY OF LEFT LL. NO FEVER OR C/O PAIN. HX CHRONIC A FIB. TACHY RATE IN THE 130'S WHEN WALKING AROUND, DOWN TO LOW 100'S (106) WHEN RESTING PER ELECTRIC CONTAINER TESTER. METOPROLOL GIVEN X1 TODAY WILL START 100MG BID TOMM. PER HOME MED DOSAGE. WILL CTM. CALL LIGHT IN REACH
--- NOTE | 2018-08-27 09:03 | NUR ---
PCU TAPE WEAVER REPORTED THAT THE PT'S HR IS RANGING FROM 120-130 AT REST AND 160-180 NOTED WHEN PT IS UP IN THE RESTROOM. NURSE ADMINISTERED 100MG OF LOPRESSOR AT 08:16. ATTEMPTED TO CALL DR. JOYNER, MESSAGED LEFT. PT ASKED TO STAY IN BED AND USE URINAL INSTEAD OF USING RESTROOM.
--- NOTE | 2018-08-27 17:24 | NUR ---
DR NIELSEN IN TO SEE PT.
--- NOTE | 2018-08-27 17:26 | NUR ---
PRN PO CARDIZEM GIVEN PER ORDERS, DISTRESSER REPORT HR OF 127 AT REST.
--- NOTE | 2018-08-27 18:15 | NUR ---
RATE AND RYTHYM IS AFIB WITH PVC AT 130 BPM PER PERINATAL DIRECTOR. PT HAS BEEN TREATED FOR TACHYCARDIA WITH CARDIZEM 10MG PER ORDERS. RESTING HR HAS BEEN BETWEEN 120-130 BPM AND HIS HR WHILE UP TO THE RESTROOM HAS BEEN BETWEEN 160-180 BPM. PT REFUSES TO USE URINAL AT BEDSIDE. PT SHOWERED TODAY. THE DRESSING ON HIS LLE WOUND WAS CHANGED TODAY. PT ONLY COMPLAINS OF PERIODICAL PAIN IN HIS LEFT LOWER EXTREMITY EXPLAINING THE PAIN TO BE A "JOLT" AND "QUICK". PT IS ALERT AND ORIENTED AND COOPERATIVE WITH CARE.
--- NOTE | 2018-08-27 18:24 | NUR ---
SPOKE WITH FUEL OPERATOR REGARDING HR AND PRN CARDIZEM GIVEN X2 THIS SHIFT. PER FUEL OPERATOR HR DID COME DOWN TO 100-110'S AFTER AM DOSE OF SCHEDULED METOPROLOL AND PRN CARDIZEM. CARDIZEM GIVEN AGAIN THIS AFTERNOON AND HR MAINTAINING 120-130'S AND ELEVATES INTO THE 160'S WITH EXERTION. PT REFUSES TO STAY IN BED EVEN WHEN ADVISED TO. DR JOYNER NOTIFIED OF HR, ORDERS RECEIVED FOR ANOTHER CARDIZEM 30MG PO NOW AND THEN CHANGE PRN CARDIZEM TO 60MG Q6H PRN FOR RESTING HEART RATE OVER 120 BPM. WILL CONT TO MONITOR.
--- NOTE | 2018-08-28 04:33 | NUR ---
SHIFT SUMMARY PT HAS SLEPT MUCH OF SHIFT, OFFERS NO C/O'S. TELE INTACT, AFIB PER MIXER AND SCALER IN THE 90'S TO LOW 100'S DURING THE NIGHT. NO ACUTE CHANGES NOTED.
[2018-08-28 05:42] LABS: International Normalized Ratio 1.5; Prothrombin Time Results 15.3 Sec (9.7-11.5)
--- NOTE | 2018-08-28 11:27 | NUR ---
PT PERMISSION Patient gave me permission to provide them care on 08/29/18 from [id number].
--- NOTE | 2018-08-28 16:37 | NUR ---
SHIFT SUMMARY PATIENT A&O X4, INDEPENDENT IN THE ROOM. DENIES ANY PAIN, SOB, NAUSEA THIS SHIFT. REDNESS TO BOTH UPPER AND LOWER LEGS. LOOKS LIKE A RASH. DENIES ANY PAIN OR ITCHING. REDNESS TRAVELS TO HIS RIGHT BUTTOCKS AND SIDE. PATIENT WAITING FOR DR. NIELSEN TO COME AND SEE HIM TODAY. WOUND TO LEFT CALF. DRESSING C/D/I. CHANGED YESTERDAY, NOT DUE TO BE CHANGED UNTIL MONDAY. BED IN LOWEST POSITION, CALL LIGHT IS WITHIN REACH. NO ACUTE CHANGES. RN WILL CONTINUE TO MONITOR.
--- NOTE | 2018-08-29 05:37 | NUR ---
SHIFT SUMMARY PT UP IN HALLS FOR WALK EARLY ON IN SHIFT, TELE SHOWS AFIB RATE 115 PER UROLOGIC SURGEON. PT SLEPT WELL THROUGHOUT THE NIGHT. NO ACUTE CHANGES, WILL CONTINUE TO MONITOR.
[2018-08-29 05:38] LABS: International Normalized Ratio 1.42; Prothrombin Time Results 14.6 Sec (9.7-11.5)
--- NOTE | 2018-08-29 16:12 | NUR ---
SHIFT SUMMARY NO ACUTE CHANGES. PATIENT UNABLE TO BE FIT IN SURGICAL SCHEDULE TODAY. PATIENT WILL BE TAKEN FIRST THING IN MORNING FOR PROCDURE. VAASCULAR SURGEON MET WITH PATIENT THIS AM. NO COMPLAINTS OF PAIN, NAUSEA, OR SHORTNESS OF BREATH. PATIENT RESTING MOST OF DAY WITH OCCASIONAL WALK IN HALLWAY. CALL LIGHT IN REACH, WILL CONTINUE TO MONITOR.
--- NOTE | 2018-08-30 04:42 | NUR ---
SHIFT SUMMARY PT HAS BEEN SLEEPING SINCE GETTING HIS 2100 MEDS. PT HAS NO COMPLAINTS. PT CURRENTLY SLEEPING AND BREATHING EASY. CALL LIGHT IN REACH.
[2018-08-30 06:21] LABS: International Normalized Ratio 1.43; Prothrombin Time Results 14.7 Sec (9.7-11.5)
--- NOTE | 2018-08-30 16:56 | NUR ---
SHIFT SUMMARY PT LEFT TO BAR EXAMINER AT 1500. PRIOR TO LEAVING, PT DENIED PAIN, INDEPENDENT IN ROOM. DRESSING C/D/I. TELE SHOWED AFIB AT 110. BAR EXAMINER CAME TO PU AT 1505
--- NOTE | 2018-08-30 19:37 | NUR ---
ASSUMED CARE AND SHIFT RODERICK PT ARRIVED TO UNIT APPROX. 1730 FROM HEART CENTER VIA BED. PT SLEEPY UPON ARRIVAL ALTHOUGH REMAINS AROUSABLE. VITAL SIGNS STABLE. PT HAS RT GROIN SITE. NO S/SX OF BLEEDING OR HEMATOMA AT THIS TIME. BEGAN MONITOR PT PER PROTOCOL. SHIFT SUMMARY PT REMAINS A&O X4. VITAL SIGNS REMAIN STABLE. PT HEART RHYTHM IN A.FIB WITH HEART RATE RANGING FORM 100'S-110'S. RT GROIN SITE REMAINS CLEAN DRY AND INTACT WITH NO S/SX OF BLEEDING OR HEMATOMA. PT REMAINS LAYING FLAT AT THIS TIME. BED IN LOW POSITION, BED ALARM ON, CALL LIGHT IN REACH AND PT DENIES ANY NEEDS AT THIS TIME. WILL CONTINUE TO MONITOR [facility].
[2018-08-31 04:21] LABS: BASOPHILS ABSOLUTE AUTO 0.08 K/mm3 (0.00-0.23); BASOPHILS PERCENT AUTO 1 % (0-2); EOSINOPHILS ABSOLUTE AUTO 0.28 K/mm3 (0.00-0.68); EOSINOPHILS PERCENT AUTO 4 % (0-6); Hematocrit 39.7 % (37.0-53.0); Hemoglobin 13.2 g/dL (13.5-17.5); IMMATURE GRAN ABSOLUTE AUTO 0.02 K/mm3 (0.00-0.10); IMMATURE GRAN PERCENT AUTO 0 % (0-1); LYMPHOCYTES ABSOLUTE AUTO 1.61 K/mm3 (0.84-5.20); LYMPHOCYTES PERCENT AUTO 21 % (21-46); MONOCYTES ABSOLUTE AUTO 0.73 K/mm3 (0.16-1.47); MONOCYTES PERCENT AUTO 10 % (4-13); Mean Corpuscular HGB 33.2 pg (26.0-34.0); Mean Corpuscular HGB Conc 33.2 g/dL (31.5-36.5); Mean Corpuscular Volume 100 fL (80-100); Mean Platelet Volume 11.4 fL (9.1-12.4); NEUTROPHILS ABSOLUTE AUTO 4.79 K/mm3 (1.96-9.15); NEUTROPHILS PERCENT AUTO 64 % (41-73); Platelet Count 233 K/mm3 (150-400); RDW Coefficient Variation 11.6 % (11.7-14.2); RDW Standard Deviation 42.6 fL (35.1-46.3); Red Blood Cell Count 3.97 M/mm3 (4.30-5.90); White Blood Cell Count 7.51 K/mm3 (4.00-11.30)
--- NOTE | 2018-08-31 04:27 | NUR ---
SHIFT SUMMARY: PATIENT RIGHT GROIN SITE CHECKED WITH EVERY BLOOD PRESSURE CHECK= NO SIGN OF BLEEDING, HEMATOMA OR BRUISING. CAPILLARY REFILL REMAINS <3 SECOUNDS WITH NO SENSATION CHANGES AND STEADY PULSES POINTS. AT APPROX 2030 PATIENT ABLE TO SIT BED UP GRADUALLY EVERY 15 MINUTES WITH NO ISSUES. AT APPROX 2130 PATIENT ABLE TO AMBULATE AROUND ROOM WITH NO ISSUES, VSS, RIGHT GROIN SITE STABLE WITH NO CHANGES NOTED. NO OTHER ISSUES NOTED, CALL LIGHT WITHIN REACH, BED LOW AND LOCKED WITH GOOD PATIENT COMPLIANCE.
[2018-08-31 04:35] LABS: International Normalized Ratio 1.51; Prothrombin Time Results 15.4 Sec (9.7-11.5)
[2018-08-31 04:37] LABS: Anion Gap 7 mmol/L (6-16); Blood Urea Nitrogen 16 mg/dL (8-24); Bun/Creatinine Ratio 15.5 (12.0-20.0); CO2, Blood 31 mmol/L (21-32); Calcium, Blood 8.1 mg/dL (8.5-10.1); Chloride, Blood 103 mmol/L (98-108); Creatinine, Blood 1.03 mg/dL (0.60-1.20); Glomerular Filtration Rate >60 (60-); Glucose, Blood 100 mg/dL (70-99); Potassium, Blood 3.4 mmol/L (3.5-5.5); Sodium, Blood 141 mmol/L (136-145)
[2018-08-31] MEDS ORDERED: ACET325 PO (11:44)
[2018-08-31] MEDS ORDERED: BISA10S PR (11:44)
[2018-08-31] MEDS ORDERED: BUME1 PO (11:45)
[2018-08-31] MEDS ORDERED: CEFP200 PO (11:48)
[2018-08-31] MEDS ORDERED: Senna Plus Tab1 EACH PO (11:49)
[2018-08-31] MEDS ORDERED: CYCL10 PO (11:49)
[2018-08-31] MEDS ORDERED: DOXY100 PO (11:50)
[2018-08-31] MEDS ORDERED: Acidophilus La100 GM PO (11:51)
[2018-08-31] MEDS ORDERED: Zofran4 MG (11:52)
[2018-08-31] MEDS ORDERED: Loratadine10 MG PO (11:55)
[2018-08-31] MEDS ORDERED: ONDA4ODT PO (11:57)
[2018-08-31] MEDS ORDERED: Micro-K10 MEQ PO (11:58)
[2018-08-31] MEDS ORDERED: GAVILAX17 GM PO (11:58)
--- NOTE | 2018-08-31 19:25 | NUR ---
DISCHARGE Assumed care of pt at 0700. Report recieved from Diana HERMAN. Pt independent in room without difficulty. Groin site free of bleeding or hematoma. Color, sensation, color, and capillary refill equal BLE. Shift assessment completed. Dressing changed to LLE per orders prior to discharge. Pt tolerated dressing change well. Education provided for discharge. Medications called to [facility] in [place]. Pt departed from unit at 1540 via wheelchair with escort.
== END 2018-08-31 15:39 | disposition home or self-care (01) | DRG 982 ==
LOC: ER 15:11 → MEDS 18:29 → ER 19:59 → MEDS 20:08 → PCU 08-30 17:41
PROVIDERS: Emergency Medicine; Internal Medicine; Pharmacist; Physician Assistant; ADMIT Internal Medicine
PROC: 04CQ3ZZ Extirpation of Matter from Left Anterior Tibial Artery, Percutaneous Approach (ICD-10-PCS; principal; 2018-08-30)
PROC: 047Q3ZZ Dilation of Left Anterior Tibial Artery, Percutaneous Approach (ICD-10-PCS; 2018-08-30)
PROC: B41D1ZZ Fluoroscopy of Aorta and Bilateral Lower Extremity Arteries using Low Osmolar Contrast (ICD-10-PCS; 2018-08-30)
DX: L03.116 Cellulitis of left lower limb (principal); Z68.43 Body mass index [BMI] 50.0-59.9, adult; E66.01 Morbid (severe) obesity due to excess calories; I48.0 Paroxysmal atrial fibrillation; I70.202 Unspecified atherosclerosis of native arteries of extremities, left leg; I87.2 Venous insufficiency (chronic) (peripheral); I10 Essential (primary) hypertension; B95.4 Other streptococcus as the cause of diseases classified elsewhere; G47.33 Obstructive sleep apnea (adult) (pediatric); Z87.891 Personal history of nicotine dependence; Z79.899 Other long term (current) drug therapy; Z79.01 Long term (current) use of anticoagulants; Z86.718 Personal history of other venous thrombosis and embolism
CPT/HCPCS: 36415; 36416; 37229; 75625; 75635; 75716; 75774; 80048; 80053; 85025; 85610; 85730; 87070; 87147; 87205; 93005; 93010; 93970; 96365; 96366; 99152; 99153; 99284-25; C1725; C1760; C1769; C1885; C1887; C1894; C8929; J0696; J0744; J1200; J1644; J2060; J2250; J3010; J3370; J7030; J7040; J7050; Q9957; Q9967

== ENCOUNTER 2018-09-07 13:00 | Day surgery (SDC) | payer OTHER ==
[~2018-09-07 13:00] MED LIST changes: +ACET325 PO; +Acidophilus La100 GM PO; +BISA10S PR; +BUME1 PO; +CEFP200 PO; +CYCL10 PO; +DOXY100 PO; +GAVILAX17 GM PO; +Loratadine10 MG PO; +Micro-K10 MEQ PO; +ONDA4ODT PO; +Senna Plus Tab1 EACH PO; +Zofran4 MG
== END 2018-09-07 22:48 | disposition home or self-care (01) ==
LOC: WOUND 13:00
PROC: 0HBLXZZ Excision of Left Lower Leg Skin, External Approach (ICD-10-PCS; principal; 2018-09-07)
DX: L97.222 Non-pressure chronic ulcer of left calf with fat layer exposed (principal); L97.225 Non-pressure chronic ulcer of left calf with muscle involvement without evidence of necrosis; L97.802 Non-pressure chronic ulcer of other part of unspecified lower leg with fat layer exposed; I73.9 Peripheral vascular disease, unspecified

== ENCOUNTER 2018-09-14 13:00 | Day surgery (SDC) | payer OTHER | END 2018-09-14 22:58 | disposition home or self-care (01) | LOC: WOUND 13:00 | DX: L97.222 Non-pressure chronic ulcer of left calf with fat layer exposed (principal); S81.802A Unspecified open wound, left lower leg, initial encounter; I73.9 Peripheral vascular disease, unspecified; Z86.718 Personal history of other venous thrombosis and embolism; R60.0 Localized edema; I48.2 Chronic atrial fibrillation; I50.20 Unspecified systolic (congestive) heart failure ==

== ENCOUNTER 2018-09-21 12:45 | Day surgery (SDC) | payer OTHER | END 2018-09-21 23:13 | disposition home or self-care (01) | LOC: WOUND 12:45 | DX: L97.225 Non-pressure chronic ulcer of left calf with muscle involvement without evidence of necrosis (principal); L97.222 Non-pressure chronic ulcer of left calf with fat layer exposed; S81.802A Unspecified open wound, left lower leg, initial encounter; I50.20 Unspecified systolic (congestive) heart failure; I73.9 Peripheral vascular disease, unspecified; Z86.718 Personal history of other venous thrombosis and embolism; R60.0 Localized edema; I48.2 Chronic atrial fibrillation | CPT/HCPCS: G0463 ==

== ENCOUNTER 2018-10-12 00:49 | Day surgery (SDC) | payer OTHER | END 2018-10-12 12:00 | disposition home or self-care (01) | LOC: WOUND 00:49 | DX: L97.222 Non-pressure chronic ulcer of left calf with fat layer exposed (principal); S81.802A Unspecified open wound, left lower leg, initial encounter; I73.9 Peripheral vascular disease, unspecified; Z86.718 Personal history of other venous thrombosis and embolism; R60.0 Localized edema; I48.2 Chronic atrial fibrillation; I50.20 Unspecified systolic (congestive) heart failure ==

== ENCOUNTER 2018-10-19 00:17 | Day surgery (SDC) | payer OTHER | END 2018-10-19 12:00 | disposition home or self-care (01) | LOC: WOUND 00:17 | DX: L97.225 Non-pressure chronic ulcer of left calf with muscle involvement without evidence of necrosis (principal); I50.20 Unspecified systolic (congestive) heart failure; I48.2 Chronic atrial fibrillation; I73.9 Peripheral vascular disease, unspecified; S81.802D Unspecified open wound, left lower leg, subsequent encounter; I10 Essential (primary) hypertension; I49.9 Cardiac arrhythmia, unspecified; Z86.718 Personal history of other venous thrombosis and embolism | CPT/HCPCS: 87070; 87147; 87205 ==

== ENCOUNTER 2018-10-22 12:23 | Day surgery (SDC) | payer OTHER | END 2018-10-22 22:44 | disposition home or self-care (01) | LOC: WOUND 12:23 | DX: L97.225 Non-pressure chronic ulcer of left calf with muscle involvement without evidence of necrosis (principal); I50.20 Unspecified systolic (congestive) heart failure; I48.2 Chronic atrial fibrillation; I73.9 Peripheral vascular disease, unspecified; I10 Essential (primary) hypertension; Z86.718 Personal history of other venous thrombosis and embolism; Z79.899 Other long term (current) drug therapy; I49.9 Cardiac arrhythmia, unspecified | CPT/HCPCS: G0463 ==

== ENCOUNTER 2018-10-24 00:07 | Day surgery (SDC) | payer OTHER | END 2018-10-24 22:39 | disposition home or self-care (01) | LOC: WOUND 00:07 | DX: L97.222 Non-pressure chronic ulcer of left calf with fat layer exposed (principal); L97.825 Non-pressure chronic ulcer of other part of left lower leg with muscle involvement without evidence of necrosis; I11.0 Hypertensive heart disease with heart failure; I50.20 Unspecified systolic (congestive) heart failure; I73.9 Peripheral vascular disease, unspecified; I48.2 Chronic atrial fibrillation; Z86.718 Personal history of other venous thrombosis and embolism ==

== ENCOUNTER 2018-10-26 08:07 | Day surgery (SDC) | payer OTHER | END 2018-10-26 23:09 | disposition home or self-care (01) | LOC: WOUND 08:07 | DX: L97.225 Non-pressure chronic ulcer of left calf with muscle involvement without evidence of necrosis (principal); L97.222 Non-pressure chronic ulcer of left calf with fat layer exposed; I11.0 Hypertensive heart disease with heart failure; I50.20 Unspecified systolic (congestive) heart failure; I73.9 Peripheral vascular disease, unspecified; I48.2 Chronic atrial fibrillation; Z86.718 Personal history of other venous thrombosis and embolism | CPT/HCPCS: G0463 ==

== ENCOUNTER 2018-10-29 00:13 | Day surgery (SDC) | payer OTHER | END 2018-10-29 23:04 | disposition home or self-care (01) | LOC: WOUND 00:13 | DX: L97.825 Non-pressure chronic ulcer of other part of left lower leg with muscle involvement without evidence of necrosis (principal); L97.222 Non-pressure chronic ulcer of left calf with fat layer exposed; I11.0 Hypertensive heart disease with heart failure; I50.20 Unspecified systolic (congestive) heart failure; I73.9 Peripheral vascular disease, unspecified; I48.2 Chronic atrial fibrillation; Z86.718 Personal history of other venous thrombosis and embolism ==

== ENCOUNTER 2018-10-31 00:59 | Day surgery (SDC) | payer OTHER | END 2018-10-31 23:08 | disposition home or self-care (01) | LOC: WOUND 00:59 | DX: L97.225 Non-pressure chronic ulcer of left calf with muscle involvement without evidence of necrosis (principal); L97.229 Non-pressure chronic ulcer of left calf with unspecified severity; I11.0 Hypertensive heart disease with heart failure; I50.20 Unspecified systolic (congestive) heart failure; I73.9 Peripheral vascular disease, unspecified; I48.2 Chronic atrial fibrillation; Z86.718 Personal history of other venous thrombosis and embolism; Z79.899 Other long term (current) drug therapy; Z79.82 Long term (current) use of aspirin; Z79.01 Long term (current) use of anticoagulants | CPT/HCPCS: G0463 ==

== ENCOUNTER 2018-11-02 00:50 | Day surgery (SDC) | payer OTHER | END 2018-11-02 22:52 | disposition home or self-care (01) | LOC: WOUND 00:50 | DX: L97.825 Non-pressure chronic ulcer of other part of left lower leg with muscle involvement without evidence of necrosis (principal); L97.222 Non-pressure chronic ulcer of left calf with fat layer exposed; I48.2 Chronic atrial fibrillation; I73.9 Peripheral vascular disease, unspecified; I11.0 Hypertensive heart disease with heart failure; I50.20 Unspecified systolic (congestive) heart failure; Z86.718 Personal history of other venous thrombosis and embolism | CPT/HCPCS: G0463 ==

== ENCOUNTER 2018-11-05 13:11 | Day surgery (SDC) | payer OTHER | END 2018-11-05 22:44 | disposition home or self-care (01) | LOC: WOUND 13:11 | DX: L97.225 Non-pressure chronic ulcer of left calf with muscle involvement without evidence of necrosis (principal); L97.822 Non-pressure chronic ulcer of other part of left lower leg with fat layer exposed; I11.0 Hypertensive heart disease with heart failure; I50.20 Unspecified systolic (congestive) heart failure; I73.9 Peripheral vascular disease, unspecified; I48.2 Chronic atrial fibrillation; Z86.718 Personal history of other venous thrombosis and embolism | CPT/HCPCS: G0463 ==

== ENCOUNTER 2018-11-07 10:15 | Day surgery (SDC) | payer OTHER | END 2018-11-07 22:54 | disposition home or self-care (01) | LOC: WOUND 10:15 | DX: L97.225 Non-pressure chronic ulcer of left calf with muscle involvement without evidence of necrosis (principal); L97.825 Non-pressure chronic ulcer of other part of left lower leg with muscle involvement without evidence of necrosis; I11.0 Hypertensive heart disease with heart failure; I50.20 Unspecified systolic (congestive) heart failure; I73.9 Peripheral vascular disease, unspecified; I48.2 Chronic atrial fibrillation; Z86.718 Personal history of other venous thrombosis and embolism | CPT/HCPCS: G0463 ==

== ENCOUNTER 2018-11-09 12:58 | Day surgery (SDC) | payer OTHER | END 2018-11-09 23:26 | disposition home or self-care (01) | LOC: WOUND 12:58 | DX: L97.225 Non-pressure chronic ulcer of left calf with muscle involvement without evidence of necrosis (principal); L97.822 Non-pressure chronic ulcer of other part of left lower leg with fat layer exposed; I11.0 Hypertensive heart disease with heart failure; I50.20 Unspecified systolic (congestive) heart failure; I73.9 Peripheral vascular disease, unspecified; I48.2 Chronic atrial fibrillation; Z86.718 Personal history of other venous thrombosis and embolism ==

== ENCOUNTER 2018-11-12 13:15 | Day surgery (SDC) | payer OTHER | END 2018-11-13 22:48 | disposition home or self-care (01) | LOC: WOUND 13:15 | DX: L97.225 Non-pressure chronic ulcer of left calf with muscle involvement without evidence of necrosis (principal); L97.825 Non-pressure chronic ulcer of other part of left lower leg with muscle involvement without evidence of necrosis; I50.20 Unspecified systolic (congestive) heart failure; I48.2 Chronic atrial fibrillation | CPT/HCPCS: G0463 ==

== ENCOUNTER 2018-11-16 13:01 | Day surgery (SDC) | payer OTHER | END 2018-11-16 22:37 | disposition home or self-care (01) | LOC: WOUND 13:01 | DX: L97.825 Non-pressure chronic ulcer of other part of left lower leg with muscle involvement without evidence of necrosis (principal); L97.225 Non-pressure chronic ulcer of left calf with muscle involvement without evidence of necrosis; I11.0 Hypertensive heart disease with heart failure; I50.20 Unspecified systolic (congestive) heart failure; I73.9 Peripheral vascular disease, unspecified; I48.2 Chronic atrial fibrillation; Z86.718 Personal history of other venous thrombosis and embolism ==

== ENCOUNTER 2018-11-19 13:15 | Day surgery (SDC) | payer OTHER | END 2018-11-19 22:44 | disposition home or self-care (01) | LOC: WOUND 13:15 | DX: L97.222 Non-pressure chronic ulcer of left calf with fat layer exposed (principal); L97.825 Non-pressure chronic ulcer of other part of left lower leg with muscle involvement without evidence of necrosis; L97.812 Non-pressure chronic ulcer of other part of right lower leg with fat layer exposed; I11.0 Hypertensive heart disease with heart failure; I50.20 Unspecified systolic (congestive) heart failure; I73.9 Peripheral vascular disease, unspecified; I48.2 Chronic atrial fibrillation; Z86.718 Personal history of other venous thrombosis and embolism | CPT/HCPCS: G0463 ==

== ENCOUNTER 2018-11-21 10:15 | Day surgery (SDC) | payer OTHER | END 2018-11-21 22:45 | disposition home or self-care (01) | LOC: WOUND 10:15 | DX: L97.825 Non-pressure chronic ulcer of other part of left lower leg with muscle involvement without evidence of necrosis (principal); L97.222 Non-pressure chronic ulcer of left calf with fat layer exposed; I11.0 Hypertensive heart disease with heart failure; I50.20 Unspecified systolic (congestive) heart failure; I48.2 Chronic atrial fibrillation; I73.9 Peripheral vascular disease, unspecified; Z86.718 Personal history of other venous thrombosis and embolism ==

== ENCOUNTER 2018-11-23 13:06 | Day surgery (SDC) | payer OTHER | END 2018-11-23 16:00 | disposition home or self-care (01) | LOC: WOUND 13:06 | DX: L97.225 Non-pressure chronic ulcer of left calf with muscle involvement without evidence of necrosis (principal); L97.825 Non-pressure chronic ulcer of other part of left lower leg with muscle involvement without evidence of necrosis; S81.802A Unspecified open wound, left lower leg, initial encounter; I11.0 Hypertensive heart disease with heart failure; I50.20 Unspecified systolic (congestive) heart failure; I48.2 Chronic atrial fibrillation; I73.9 Peripheral vascular disease, unspecified; Z86.718 Personal history of other venous thrombosis and embolism ==

== ENCOUNTER 2018-11-26 13:18 | Day surgery (SDC) | payer OTHER | END 2018-11-26 23:02 | disposition home or self-care (01) | LOC: WOUND 13:18 | DX: L97.825 Non-pressure chronic ulcer of other part of left lower leg with muscle involvement without evidence of necrosis (principal); L97.222 Non-pressure chronic ulcer of left calf with fat layer exposed; I11.0 Hypertensive heart disease with heart failure; I50.20 Unspecified systolic (congestive) heart failure; I73.9 Peripheral vascular disease, unspecified; I48.2 Chronic atrial fibrillation; Z86.718 Personal history of other venous thrombosis and embolism ==

== ENCOUNTER 2018-11-30 13:02 | Day surgery (SDC) | payer OTHER | END 2018-11-30 22:55 | disposition home or self-care (01) | LOC: WOUND 13:02 | DX: L97.222 Non-pressure chronic ulcer of left calf with fat layer exposed (principal); S81.802D Unspecified open wound, left lower leg, subsequent encounter; I50.20 Unspecified systolic (congestive) heart failure; I48.2 Chronic atrial fibrillation; I73.9 Peripheral vascular disease, unspecified; Z86.718 Personal history of other venous thrombosis and embolism ==

== ENCOUNTER 2018-12-04 10:20 | Day surgery (SDC) | payer OTHER | END 2018-12-04 22:57 | disposition home or self-care (01) | LOC: WOUND 10:20 | DX: L97.225 Non-pressure chronic ulcer of left calf with muscle involvement without evidence of necrosis (principal); L97.825 Non-pressure chronic ulcer of other part of left lower leg with muscle involvement without evidence of necrosis; S81.802D Unspecified open wound, left lower leg, subsequent encounter; I11.0 Hypertensive heart disease with heart failure; I50.20 Unspecified systolic (congestive) heart failure; I73.9 Peripheral vascular disease, unspecified; I48.2 Chronic atrial fibrillation; Z86.718 Personal history of other venous thrombosis and embolism ==

== ENCOUNTER 2018-12-11 10:15 | Day surgery (SDC) | payer OTHER | END 2018-12-11 22:38 | disposition home or self-care (01) | LOC: WOUND 10:15 | DX: L97.222 Non-pressure chronic ulcer of left calf with fat layer exposed (principal); S81.802D Unspecified open wound, left lower leg, subsequent encounter; I11.0 Hypertensive heart disease with heart failure; I50.20 Unspecified systolic (congestive) heart failure; I48.2 Chronic atrial fibrillation; I73.9 Peripheral vascular disease, unspecified; Z86.718 Personal history of other venous thrombosis and embolism ==

== ENCOUNTER 2018-12-25 10:16 | Day surgery (SDC) | payer OTHER | END 2018-12-25 23:03 | disposition home or self-care (01) | LOC: WOUND 10:16 | DX: L97.821 Non-pressure chronic ulcer of other part of left lower leg limited to breakdown of skin (principal); L97.221 Non-pressure chronic ulcer of left calf limited to breakdown of skin; S81.802D Unspecified open wound, left lower leg, subsequent encounter; I11.0 Hypertensive heart disease with heart failure; I50.20 Unspecified systolic (congestive) heart failure; I48.2 Chronic atrial fibrillation; I73.9 Peripheral vascular disease, unspecified; Z86.718 Personal history of other venous thrombosis and embolism ==

== ENCOUNTER 2019-01-01 00:19 | Day surgery (SDC) | payer OTHER | END 2019-01-01 22:55 | disposition home or self-care (01) | LOC: WOUND 00:19 | DX: L97.222 Non-pressure chronic ulcer of left calf with fat layer exposed (principal); S81.802D Unspecified open wound, left lower leg, subsequent encounter; I11.0 Hypertensive heart disease with heart failure; I50.20 Unspecified systolic (congestive) heart failure; I48.2 Chronic atrial fibrillation; I73.9 Peripheral vascular disease, unspecified; Z86.718 Personal history of other venous thrombosis and embolism ==

== ENCOUNTER 2019-01-03 08:00 | Day surgery (SDC) | payer OTHER | END 2019-01-03 22:37 | disposition home or self-care (01) | LOC: WOUND 08:00 | DX: L97.222 Non-pressure chronic ulcer of left calf with fat layer exposed (principal); S81.802D Unspecified open wound, left lower leg, subsequent encounter; I11.0 Hypertensive heart disease with heart failure; I50.20 Unspecified systolic (congestive) heart failure; I48.2 Chronic atrial fibrillation; I73.9 Peripheral vascular disease, unspecified; Z86.718 Personal history of other venous thrombosis and embolism ==

== ENCOUNTER 2019-01-08 08:57 | Day surgery (SDC) | payer OTHER | END 2019-01-08 23:17 | disposition home or self-care (01) | LOC: WOUND 08:57 | DX: L97.822 Non-pressure chronic ulcer of other part of left lower leg with fat layer exposed (principal); L97.221 Non-pressure chronic ulcer of left calf limited to breakdown of skin; I11.0 Hypertensive heart disease with heart failure; I50.20 Unspecified systolic (congestive) heart failure; I48.2 Chronic atrial fibrillation; I73.9 Peripheral vascular disease, unspecified; Z86.718 Personal history of other venous thrombosis and embolism ==

== ENCOUNTER → 2019-01-09 | Outpatient (CLI) | payer OTHER | END | disposition home or self-care (01) | LOC: LAB SHORT 09:11 → PLD 09:11 → LAB 09:11 | DX: L60.2 Onychogryphosis (principal); B35.1 Tinea unguium | CPT/HCPCS: 88304; 88312 ==

== ENCOUNTER 2019-01-15 10:20 | Day surgery (SDC) | payer OTHER | END 2019-01-15 22:43 | disposition home or self-care (01) | LOC: WOUND 10:20 | DX: L97.221 Non-pressure chronic ulcer of left calf limited to breakdown of skin (principal); L97.821 Non-pressure chronic ulcer of other part of left lower leg limited to breakdown of skin; S81.802A Unspecified open wound, left lower leg, initial encounter; I73.9 Peripheral vascular disease, unspecified; I11.0 Hypertensive heart disease with heart failure; I50.20 Unspecified systolic (congestive) heart failure; I48.2 Chronic atrial fibrillation; Z86.718 Personal history of other venous thrombosis and embolism ==

== ENCOUNTER 2019-01-22 10:30 | Day surgery (SDC) | payer OTHER | END 2019-01-22 22:57 | disposition home or self-care (01) | LOC: WOUND 10:30 | DX: L97.822 Non-pressure chronic ulcer of other part of left lower leg with fat layer exposed (principal); L97.222 Non-pressure chronic ulcer of left calf with fat layer exposed; I11.0 Hypertensive heart disease with heart failure; I50.20 Unspecified systolic (congestive) heart failure; I73.9 Peripheral vascular disease, unspecified; I48.2 Chronic atrial fibrillation; Z86.718 Personal history of other venous thrombosis and embolism ==

== ENCOUNTER 2019-01-29 09:22 | Day surgery (SDC) | payer OTHER | END 2019-01-29 23:20 | disposition home or self-care (01) | LOC: WOUND 09:22 | DX: L97.221 Non-pressure chronic ulcer of left calf limited to breakdown of skin (principal); L97.821 Non-pressure chronic ulcer of other part of left lower leg limited to breakdown of skin; I73.9 Peripheral vascular disease, unspecified; I11.0 Hypertensive heart disease with heart failure; I50.20 Unspecified systolic (congestive) heart failure; I48.2 Chronic atrial fibrillation; Z86.718 Personal history of other venous thrombosis and embolism | CPT/HCPCS: 87071; 87075; 87077; 87147; 87186; 87205 ==

== ENCOUNTER 2019-02-05 10:20 | Day surgery (SDC) | payer OTHER | END 2019-02-05 22:38 | disposition home or self-care (01) | LOC: WOUND 10:20 | DX: L97.222 Non-pressure chronic ulcer of left calf with fat layer exposed (principal); S81.802A Unspecified open wound, left lower leg, initial encounter; I50.20 Unspecified systolic (congestive) heart failure; I73.9 Peripheral vascular disease, unspecified; R60.0 Localized edema; I48.2 Chronic atrial fibrillation; Z86.718 Personal history of other venous thrombosis and embolism ==

== ENCOUNTER 2019-02-08 09:59 | Day surgery (SDC) | payer OTHER | END 2019-02-08 23:27 | disposition home or self-care (01) | LOC: WOUND 09:59 | PROC: 2W1RX6Z Compression of Left Lower Leg using Pressure Dressing (ICD-10-PCS; principal; 2019-02-08) | DX: I83.028 Varicose veins of left lower extremity with ulcer other part of lower leg (principal); L97.822 Non-pressure chronic ulcer of other part of left lower leg with fat layer exposed; I83.022 Varicose veins of left lower extremity with ulcer of calf; L97.222 Non-pressure chronic ulcer of left calf with fat layer exposed; I73.9 Peripheral vascular disease, unspecified; I50.20 Unspecified systolic (congestive) heart failure; R60.0 Localized edema; I48.2 Chronic atrial fibrillation; Z86.718 Personal history of other venous thrombosis and embolism ==

== ENCOUNTER 2019-02-12 10:18 | Day surgery (SDC) | payer OTHER | END 2019-02-12 23:05 | disposition home or self-care (01) | LOC: WOUND 10:18 | DX: L97.222 Non-pressure chronic ulcer of left calf with fat layer exposed (principal); I73.9 Peripheral vascular disease, unspecified; I48.2 Chronic atrial fibrillation; R60.0 Localized edema; Z86.718 Personal history of other venous thrombosis and embolism ==

== ENCOUNTER 2019-02-15 02:49 | Day surgery (SDC) | payer OTHER | END 2019-02-15 23:33 | disposition home or self-care (01) | LOC: WOUND 02:49 | DX: L97.222 Non-pressure chronic ulcer of left calf with fat layer exposed (principal); I73.9 Peripheral vascular disease, unspecified; I48.2 Chronic atrial fibrillation; I11.0 Hypertensive heart disease with heart failure; I50.20 Unspecified systolic (congestive) heart failure; Z86.718 Personal history of other venous thrombosis and embolism ==

== ENCOUNTER 2019-02-19 00:15 | Day surgery (SDC) | payer OTHER | END 2019-02-19 22:42 | disposition home or self-care (01) | LOC: WOUND 00:15 | DX: L97.222 Non-pressure chronic ulcer of left calf with fat layer exposed (principal); I73.9 Peripheral vascular disease, unspecified; R60.0 Localized edema; I48.2 Chronic atrial fibrillation; S81.802D Unspecified open wound, left lower leg, subsequent encounter; I50.20 Unspecified systolic (congestive) heart failure; S81.802A Unspecified open wound, left lower leg, initial encounter; I83.028 Varicose veins of left lower extremity with ulcer other part of lower leg; L03.116 Cellulitis of left lower limb; Z86.718 Personal history of other venous thrombosis and embolism ==

== ENCOUNTER 2019-02-22 02:34 | Day surgery (SDC) | payer OTHER | END 2019-02-22 22:45 | disposition home or self-care (01) | LOC: WOUND 02:34 | DX: L97.222 Non-pressure chronic ulcer of left calf with fat layer exposed (principal); I73.9 Peripheral vascular disease, unspecified; I48.2 Chronic atrial fibrillation; I50.20 Unspecified systolic (congestive) heart failure; Z86.718 Personal history of other venous thrombosis and embolism ==

== ENCOUNTER 2019-02-26 00:15 | Day surgery (SDC) | payer OTHER | END 2019-02-26 22:39 | disposition home or self-care (01) | LOC: WOUND 00:15 | DX: L97.222 Non-pressure chronic ulcer of left calf with fat layer exposed (principal); I73.9 Peripheral vascular disease, unspecified; I48.2 Chronic atrial fibrillation; I50.20 Unspecified systolic (congestive) heart failure; Z86.718 Personal history of other venous thrombosis and embolism ==

== ENCOUNTER 2019-02-28 00:13 | Day surgery (SDC) | payer OTHER | END 2019-02-28 22:40 | disposition home or self-care (01) | LOC: WOUND 00:13 | DX: L97.222 Non-pressure chronic ulcer of left calf with fat layer exposed (principal); I73.9 Peripheral vascular disease, unspecified; I48.2 Chronic atrial fibrillation; I50.20 Unspecified systolic (congestive) heart failure; Z86.718 Personal history of other venous thrombosis and embolism ==

== ENCOUNTER 2019-03-05 00:21 | Day surgery (SDC) | payer OTHER | END 2019-03-05 22:45 | disposition home or self-care (01) | LOC: WOUND 00:21 | DX: L97.222 Non-pressure chronic ulcer of left calf with fat layer exposed (principal); I73.9 Peripheral vascular disease, unspecified; I48.2 Chronic atrial fibrillation; Z86.718 Personal history of other venous thrombosis and embolism ==

== ENCOUNTER 2019-03-12 00:21 | Day surgery (SDC) | payer OTHER | END 2019-03-12 23:19 | disposition home or self-care (01) | LOC: WOUND 00:21 | DX: L97.221 Non-pressure chronic ulcer of left calf limited to breakdown of skin (principal); I73.9 Peripheral vascular disease, unspecified; I48.2 Chronic atrial fibrillation; Z86.718 Personal history of other venous thrombosis and embolism ==

== ENCOUNTER 2019-03-15 02:06 | Day surgery (SDC) | payer OTHER | END 2019-03-16 | disposition home or self-care (01) | LOC: WOUND | DX: L97.222 Non-pressure chronic ulcer of left calf with fat layer exposed (principal); I73.9 Peripheral vascular disease, unspecified; I48.2 Chronic atrial fibrillation; Z86.718 Personal history of other venous thrombosis and embolism | CPT/HCPCS: G0463 ==

== ENCOUNTER 2019-03-19 00:17 | Day surgery (SDC) | payer OTHER | END 2019-03-19 22:46 | disposition home or self-care (01) | LOC: WOUND 00:17 | DX: L97.222 Non-pressure chronic ulcer of left calf with fat layer exposed (principal); I73.9 Peripheral vascular disease, unspecified; I50.20 Unspecified systolic (congestive) heart failure; I48.2 Chronic atrial fibrillation; Z86.718 Personal history of other venous thrombosis and embolism ==

== ENCOUNTER 2019-03-22 11:17 | Day surgery (SDC) | payer OTHER | END 2019-03-22 23:01 | disposition home or self-care (01) | LOC: WOUND 11:17 | DX: L97.222 Non-pressure chronic ulcer of left calf with fat layer exposed (principal); I73.9 Peripheral vascular disease, unspecified; Z86.718 Personal history of other venous thrombosis and embolism ==

== ENCOUNTER 2019-03-26 00:09 | Day surgery (SDC) | payer OTHER | END 2019-03-26 23:02 | disposition home or self-care (01) | LOC: WOUND 00:09 | DX: L97.221 Non-pressure chronic ulcer of left calf limited to breakdown of skin (principal); L97.821 Non-pressure chronic ulcer of other part of left lower leg limited to breakdown of skin; I73.9 Peripheral vascular disease, unspecified; I48.2 Chronic atrial fibrillation; I50.20 Unspecified systolic (congestive) heart failure; Z86.718 Personal history of other venous thrombosis and embolism ==

== ENCOUNTER 2019-03-29 00:39 | Day surgery (SDC) | payer OTHER | END 2019-03-30 00:11 | disposition home or self-care (01) | LOC: WOUND 00:39 | DX: L97.222 Non-pressure chronic ulcer of left calf with fat layer exposed (principal); I73.9 Peripheral vascular disease, unspecified; I48.2 Chronic atrial fibrillation; I50.20 Unspecified systolic (congestive) heart failure; Z86.718 Personal history of other venous thrombosis and embolism ==

== ENCOUNTER 2019-04-02 00:41 | Day surgery (SDC) | payer OTHER | END 2019-04-02 22:40 | disposition home or self-care (01) | LOC: WOUND 00:41 | DX: L97.222 Non-pressure chronic ulcer of left calf with fat layer exposed (principal); L97.822 Non-pressure chronic ulcer of other part of left lower leg with fat layer exposed; I73.9 Peripheral vascular disease, unspecified; I48.2 Chronic atrial fibrillation; I11.0 Hypertensive heart disease with heart failure; I50.20 Unspecified systolic (congestive) heart failure; Z86.718 Personal history of other venous thrombosis and embolism ==

== ENCOUNTER 2019-04-05 02:30 | Day surgery (SDC) | payer OTHER | END 2019-04-05 22:37 | disposition home or self-care (01) | LOC: WOUND 02:30 | DX: L97.222 Non-pressure chronic ulcer of left calf with fat layer exposed (principal); L97.822 Non-pressure chronic ulcer of other part of left lower leg with fat layer exposed; I73.9 Peripheral vascular disease, unspecified; I48.2 Chronic atrial fibrillation; Z86.718 Personal history of other venous thrombosis and embolism ==

== ENCOUNTER 2019-04-09 00:07 | Day surgery (SDC) | payer OTHER | END 2019-04-09 22:35 | disposition home or self-care (01) | LOC: WOUND 00:07 | DX: L97.821 Non-pressure chronic ulcer of other part of left lower leg limited to breakdown of skin (principal); L97.222 Non-pressure chronic ulcer of left calf with fat layer exposed; I73.9 Peripheral vascular disease, unspecified; I10 Essential (primary) hypertension; Z86.718 Personal history of other venous thrombosis and embolism ==

== ENCOUNTER 2019-04-12 11:05 | Day surgery (SDC) | payer OTHER | END 2019-04-12 22:39 | disposition home or self-care (01) | LOC: WOUND 11:05 | DX: L97.222 Non-pressure chronic ulcer of left calf with fat layer exposed (principal); I73.9 Peripheral vascular disease, unspecified; I48.2 Chronic atrial fibrillation; Z86.718 Personal history of other venous thrombosis and embolism ==

== ENCOUNTER 2019-04-16 00:29 | Day surgery (SDC) | payer OTHER | END 2019-04-16 22:41 | disposition home or self-care (01) | LOC: WOUND 00:29 | DX: L97.221 Non-pressure chronic ulcer of left calf limited to breakdown of skin (principal); I73.9 Peripheral vascular disease, unspecified; I10 Essential (primary) hypertension; I48.2 Chronic atrial fibrillation; Z86.718 Personal history of other venous thrombosis and embolism ==

== ENCOUNTER 2019-04-19 00:53 | Day surgery (SDC) | payer OTHER | END 2019-04-19 23:22 | disposition home or self-care (01) | LOC: WOUND 00:53 | DX: L97.222 Non-pressure chronic ulcer of left calf with fat layer exposed (principal); I73.9 Peripheral vascular disease, unspecified; I48.2 Chronic atrial fibrillation; Z86.718 Personal history of other venous thrombosis and embolism ==

== ENCOUNTER 2019-04-23 00:24 | Day surgery (SDC) | payer OTHER | END 2019-04-23 22:45 | disposition home or self-care (01) | LOC: WOUND 00:24 | DX: L97.221 Non-pressure chronic ulcer of left calf limited to breakdown of skin (principal); I73.9 Peripheral vascular disease, unspecified; I48.2 Chronic atrial fibrillation; I50.20 Unspecified systolic (congestive) heart failure; Z86.718 Personal history of other venous thrombosis and embolism ==

== ENCOUNTER 2019-04-26 01:20 | Day surgery (SDC) | payer OTHER | END 2019-04-26 22:52 | disposition home or self-care (01) | LOC: WOUND 01:20 | DX: L97.222 Non-pressure chronic ulcer of left calf with fat layer exposed (principal); I73.9 Peripheral vascular disease, unspecified; I48.2 Chronic atrial fibrillation; I10 Essential (primary) hypertension; Z86.718 Personal history of other venous thrombosis and embolism ==

== ENCOUNTER 2019-04-30 10:15 | Day surgery (SDC) | payer OTHER | END 2019-04-30 22:48 | disposition home or self-care (01) | LOC: WOUND 10:15 | DX: L97.221 Non-pressure chronic ulcer of left calf limited to breakdown of skin (principal); I73.9 Peripheral vascular disease, unspecified; I11.0 Hypertensive heart disease with heart failure; I50.20 Unspecified systolic (congestive) heart failure; I48.20 Chronic atrial fibrillation, unspecified; Z86.718 Personal history of other venous thrombosis and embolism ==

== ENCOUNTER 2019-05-03 00:50 | Day surgery (SDC) | payer OTHER | END 2019-05-03 22:53 | disposition home or self-care (01) | LOC: WOUND 00:50 | DX: L97.222 Non-pressure chronic ulcer of left calf with fat layer exposed (principal); L97.829 Non-pressure chronic ulcer of other part of left lower leg with unspecified severity; I87.2 Venous insufficiency (chronic) (peripheral); I48.20 Chronic atrial fibrillation, unspecified; I10 Essential (primary) hypertension; Z86.718 Personal history of other venous thrombosis and embolism ==

== ENCOUNTER 2019-05-07 00:13 | Day surgery (SDC) | payer OTHER | END 2019-05-07 22:35 | disposition home or self-care (01) | LOC: WOUND 00:13 | DX: L97.221 Non-pressure chronic ulcer of left calf limited to breakdown of skin (principal); I73.9 Peripheral vascular disease, unspecified; I48.20 Chronic atrial fibrillation, unspecified; Z86.718 Personal history of other venous thrombosis and embolism ==

== ENCOUNTER 2019-05-10 00:13 | Day surgery (SDC) | payer OTHER | END 2019-05-10 23:39 | disposition home or self-care (01) | LOC: WOUND 00:13 | DX: L97.222 Non-pressure chronic ulcer of left calf with fat layer exposed (principal); I73.9 Peripheral vascular disease, unspecified; I48.20 Chronic atrial fibrillation, unspecified; I11.0 Hypertensive heart disease with heart failure; I50.20 Unspecified systolic (congestive) heart failure; Z86.718 Personal history of other venous thrombosis and embolism ==

== ENCOUNTER 2019-05-14 09:59 | Day surgery (SDC) | payer OTHER | END 2019-05-14 22:38 | disposition home or self-care (01) | LOC: WOUND 09:59 | DX: L97.222 Non-pressure chronic ulcer of left calf with fat layer exposed (principal); I73.9 Peripheral vascular disease, unspecified; I48.20 Chronic atrial fibrillation, unspecified; Z86.718 Personal history of other venous thrombosis and embolism; I10 Essential (primary) hypertension ==

== ENCOUNTER 2019-05-17 10:48 | Day surgery (SDC) | payer OTHER | END 2019-05-17 23:39 | disposition home or self-care (01) | LOC: WOUND 10:48 | DX: L97.222 Non-pressure chronic ulcer of left calf with fat layer exposed (principal); S81.802D Unspecified open wound, left lower leg, subsequent encounter; I73.9 Peripheral vascular disease, unspecified; I48.20 Chronic atrial fibrillation, unspecified; I11.0 Hypertensive heart disease with heart failure; I50.20 Unspecified systolic (congestive) heart failure; Z86.718 Personal history of other venous thrombosis and embolism ==

== ENCOUNTER 2019-05-21 00:13 | Day surgery (SDC) | payer OTHER | END 2019-05-21 22:40 | disposition home or self-care (01) | LOC: WOUND 00:13 | DX: L97.221 Non-pressure chronic ulcer of left calf limited to breakdown of skin (principal); I73.9 Peripheral vascular disease, unspecified; I48.20 Chronic atrial fibrillation, unspecified; I11.0 Hypertensive heart disease with heart failure; I50.20 Unspecified systolic (congestive) heart failure; Z86.718 Personal history of other venous thrombosis and embolism ==

== ENCOUNTER 2019-05-24 00:47 | Day surgery (SDC) | payer OTHER | END 2019-05-24 23:00 | disposition home or self-care (01) | LOC: WOUND 00:47 | DX: L97.222 Non-pressure chronic ulcer of left calf with fat layer exposed (principal); I73.9 Peripheral vascular disease, unspecified; I48.20 Chronic atrial fibrillation, unspecified; I11.0 Hypertensive heart disease with heart failure; I50.20 Unspecified systolic (congestive) heart failure; Z86.718 Personal history of other venous thrombosis and embolism ==

== ENCOUNTER 2019-05-28 10:03 | Day surgery (SDC) | payer OTHER | END 2019-05-28 22:34 | disposition home or self-care (01) | LOC: WOUND 10:03 | DX: L97.222 Non-pressure chronic ulcer of left calf with fat layer exposed (principal); I87.2 Venous insufficiency (chronic) (peripheral); I73.9 Peripheral vascular disease, unspecified; I10 Essential (primary) hypertension; I48.20 Chronic atrial fibrillation, unspecified; Z86.718 Personal history of other venous thrombosis and embolism; Z79.01 Long term (current) use of anticoagulants; Z79.82 Long term (current) use of aspirin; Z79.899 Other long term (current) drug therapy ==

== ENCOUNTER 2019-06-04 00:37 | Day surgery (SDC) | payer OTHER | END 2019-06-04 22:43 | disposition home or self-care (01) | LOC: WOUND 00:37 | DX: I96 Gangrene, not elsewhere classified (principal); L97.221 Non-pressure chronic ulcer of left calf limited to breakdown of skin; I11.0 Hypertensive heart disease with heart failure; I50.20 Unspecified systolic (congestive) heart failure; I48.20 Chronic atrial fibrillation, unspecified; Z79.01 Long term (current) use of anticoagulants; Z79.82 Long term (current) use of aspirin; Z79.899 Other long term (current) drug therapy; Z86.718 Personal history of other venous thrombosis and embolism ==

== ENCOUNTER 2019-06-07 00:25 | Day surgery (SDC) | payer OTHER | END 2019-06-07 22:53 | disposition home or self-care (01) | LOC: WOUND 00:25 | DX: I96 Gangrene, not elsewhere classified (principal); L97.221 Non-pressure chronic ulcer of left calf limited to breakdown of skin; I11.0 Hypertensive heart disease with heart failure; I50.20 Unspecified systolic (congestive) heart failure; I48.20 Chronic atrial fibrillation, unspecified; Z86.718 Personal history of other venous thrombosis and embolism; Z79.01 Long term (current) use of anticoagulants; Z79.899 Other long term (current) drug therapy; Z79.82 Long term (current) use of aspirin ==

== ENCOUNTER 2019-06-11 10:00 | Day surgery (SDC) | payer OTHER | END 2019-06-11 22:38 | disposition home or self-care (01) | LOC: WOUND 10:00 | DX: L97.222 Non-pressure chronic ulcer of left calf with fat layer exposed (principal); I73.9 Peripheral vascular disease, unspecified; I48.20 Chronic atrial fibrillation, unspecified; Z86.718 Personal history of other venous thrombosis and embolism ==

== ENCOUNTER 2019-06-14 11:00 | Day surgery (SDC) | payer OTHER | END 2019-06-14 23:51 | disposition home or self-care (01) | LOC: WOUND 11:00 | DX: L97.222 Non-pressure chronic ulcer of left calf with fat layer exposed (principal); I73.9 Peripheral vascular disease, unspecified; I48.20 Chronic atrial fibrillation, unspecified; Z86.718 Personal history of other venous thrombosis and embolism; Z79.01 Long term (current) use of anticoagulants; Z79.899 Other long term (current) drug therapy ==

== ENCOUNTER 2019-06-18 10:03 | Day surgery (SDC) | payer OTHER | END 2019-06-18 22:40 | disposition home or self-care (01) | LOC: WOUND 10:03 | DX: L97.222 Non-pressure chronic ulcer of left calf with fat layer exposed (principal); I48.20 Chronic atrial fibrillation, unspecified; Z86.718 Personal history of other venous thrombosis and embolism; Z79.01 Long term (current) use of anticoagulants; Z79.82 Long term (current) use of aspirin; Z79.899 Other long term (current) drug therapy ==

== ENCOUNTER 2019-06-21 11:02 | Day surgery (SDC) | payer OTHER | END 2019-06-21 22:47 | disposition home or self-care (01) | LOC: WOUND 11:02 | DX: I96 Gangrene, not elsewhere classified (principal); L97.221 Non-pressure chronic ulcer of left calf limited to breakdown of skin; I87.2 Venous insufficiency (chronic) (peripheral); I11.0 Hypertensive heart disease with heart failure; I50.20 Unspecified systolic (congestive) heart failure; I48.20 Chronic atrial fibrillation, unspecified; Z86.718 Personal history of other venous thrombosis and embolism; Z79.01 Long term (current) use of anticoagulants; Z79.82 Long term (current) use of aspirin; Z79.899 Other long term (current) drug therapy ==

== ENCOUNTER 2019-06-25 10:02 | Day surgery (SDC) | payer OTHER | END 2019-06-25 23:00 | disposition home or self-care (01) | LOC: WOUND 10:02 | DX: L97.222 Non-pressure chronic ulcer of left calf with fat layer exposed (principal); I87.2 Venous insufficiency (chronic) (peripheral); I48.20 Chronic atrial fibrillation, unspecified; Z86.718 Personal history of other venous thrombosis and embolism; Z79.899 Other long term (current) drug therapy ==

== ENCOUNTER 2019-07-02 10:00 | Day surgery (SDC) | payer OTHER | END 2019-07-02 22:58 | disposition home or self-care (01) | LOC: WOUND 10:00 | DX: L97.822 Non-pressure chronic ulcer of other part of left lower leg with fat layer exposed (principal); I48.20 Chronic atrial fibrillation, unspecified; I73.9 Peripheral vascular disease, unspecified; Z86.718 Personal history of other venous thrombosis and embolism; Z79.01 Long term (current) use of anticoagulants; Z79.899 Other long term (current) drug therapy; Z79.82 Long term (current) use of aspirin ==

== ENCOUNTER 2019-07-05 11:01 | Day surgery (SDC) | payer OTHER | END 2019-07-05 23:03 | disposition home or self-care (01) | LOC: WOUND 11:01 | DX: L97.222 Non-pressure chronic ulcer of left calf with fat layer exposed (principal); I73.9 Peripheral vascular disease, unspecified; I48.20 Chronic atrial fibrillation, unspecified; Z86.718 Personal history of other venous thrombosis and embolism; Z79.01 Long term (current) use of anticoagulants; Z79.82 Long term (current) use of aspirin; Z79.899 Other long term (current) drug therapy ==

== ENCOUNTER 2019-07-09 10:02 | Day surgery (SDC) | payer OTHER | END 2019-07-09 22:56 | disposition home or self-care (01) | LOC: WOUND 10:02 | DX: L97.222 Non-pressure chronic ulcer of left calf with fat layer exposed (principal); I48.20 Chronic atrial fibrillation, unspecified; I73.9 Peripheral vascular disease, unspecified; Z86.718 Personal history of other venous thrombosis and embolism ==

== ENCOUNTER 2019-07-12 11:05 | Day surgery (SDC) | payer OTHER | END 2019-07-12 23:49 | disposition home or self-care (01) | LOC: WOUND 11:05 | DX: L97.229 Non-pressure chronic ulcer of left calf with unspecified severity (principal); I73.9 Peripheral vascular disease, unspecified; I11.0 Hypertensive heart disease with heart failure; I50.20 Unspecified systolic (congestive) heart failure; I48.20 Chronic atrial fibrillation, unspecified; Z86.718 Personal history of other venous thrombosis and embolism; Z79.01 Long term (current) use of anticoagulants; Z79.82 Long term (current) use of aspirin; Z79.899 Other long term (current) drug therapy ==

== ENCOUNTER 2019-07-16 10:01 | Day surgery (SDC) | payer OTHER | END 2019-07-16 23:30 | disposition home or self-care (01) | LOC: WOUND 10:01 | DX: L97.221 Non-pressure chronic ulcer of left calf limited to breakdown of skin (principal); I73.9 Peripheral vascular disease, unspecified; I11.0 Hypertensive heart disease with heart failure; I50.20 Unspecified systolic (congestive) heart failure; I48.20 Chronic atrial fibrillation, unspecified; Z86.718 Personal history of other venous thrombosis and embolism; Z79.01 Long term (current) use of anticoagulants; Z79.82 Long term (current) use of aspirin; Z79.899 Other long term (current) drug therapy ==

== ENCOUNTER 2019-07-19 11:04 | Day surgery (SDC) | payer OTHER | END 2019-07-19 23:47 | disposition home or self-care (01) | LOC: WOUND 11:04 | DX: L97.222 Non-pressure chronic ulcer of left calf with fat layer exposed (principal); I73.9 Peripheral vascular disease, unspecified; I48.20 Chronic atrial fibrillation, unspecified; Z86.718 Personal history of other venous thrombosis and embolism; Z79.01 Long term (current) use of anticoagulants; Z79.82 Long term (current) use of aspirin; Z79.899 Other long term (current) drug therapy ==

== ENCOUNTER 2019-07-23 10:04 | Day surgery (SDC) | payer OTHER | END 2019-07-23 22:46 | disposition home or self-care (01) | LOC: WOUND 10:04 | DX: L97.221 Non-pressure chronic ulcer of left calf limited to breakdown of skin (principal); I73.9 Peripheral vascular disease, unspecified; I48.20 Chronic atrial fibrillation, unspecified; I11.0 Hypertensive heart disease with heart failure; I50.20 Unspecified systolic (congestive) heart failure; Z86.718 Personal history of other venous thrombosis and embolism; Z79.01 Long term (current) use of anticoagulants; Z79.82 Long term (current) use of aspirin; Z79.899 Other long term (current) drug therapy ==

== ENCOUNTER 2019-07-30 10:02 | Day surgery (SDC) | payer OTHER | END 2019-07-30 22:33 | disposition home or self-care (01) | LOC: WOUND 10:02 | DX: L97.221 Non-pressure chronic ulcer of left calf limited to breakdown of skin (principal); I73.9 Peripheral vascular disease, unspecified; I11.0 Hypertensive heart disease with heart failure; I50.20 Unspecified systolic (congestive) heart failure; I48.20 Chronic atrial fibrillation, unspecified; I49.9 Cardiac arrhythmia, unspecified; Z86.718 Personal history of other venous thrombosis and embolism; Z79.82 Long term (current) use of aspirin; Z79.01 Long term (current) use of anticoagulants; Z79.899 Other long term (current) drug therapy ==

== ENCOUNTER 2019-08-06 10:06 | Day surgery (SDC) | payer OTHER | END 2019-08-06 22:35 | disposition home or self-care (01) | LOC: WOUND 10:06 | DX: L97.221 Non-pressure chronic ulcer of left calf limited to breakdown of skin (principal); I73.9 Peripheral vascular disease, unspecified; I11.0 Hypertensive heart disease with heart failure; I50.20 Unspecified systolic (congestive) heart failure; I48.20 Chronic atrial fibrillation, unspecified; I49.9 Cardiac arrhythmia, unspecified; Z86.718 Personal history of other venous thrombosis and embolism; Z79.82 Long term (current) use of aspirin; Z79.01 Long term (current) use of anticoagulants; Z79.899 Other long term (current) drug therapy | CPT/HCPCS: G0463 ==

== ENCOUNTER 2020-01-14 00:31 | Day surgery (SDC) | payer OTHER | END 2020-01-14 22:36 | disposition home or self-care (01) | LOC: WOUND 00:31 | DX: L97.822 Non-pressure chronic ulcer of other part of left lower leg with fat layer exposed (principal); I87.2 Venous insufficiency (chronic) (peripheral); I10 Essential (primary) hypertension; I48.0 Paroxysmal atrial fibrillation; E66.01 Morbid (severe) obesity due to excess calories; Z86.718 Personal history of other venous thrombosis and embolism | CPT/HCPCS: 87070; 87075; 87205; G0463 ==

== ENCOUNTER 2020-01-21 00:18 | Day surgery (SDC) | payer OTHER | END 2020-01-21 23:12 | disposition home or self-care (01) | LOC: WOUND 00:18 | DX: L97.822 Non-pressure chronic ulcer of other part of left lower leg with fat layer exposed (principal); I87.2 Venous insufficiency (chronic) (peripheral); I10 Essential (primary) hypertension; E66.01 Morbid (severe) obesity due to excess calories; Z68.43 Body mass index [BMI] 50.0-59.9, adult; Z79.899 Other long term (current) drug therapy; Z79.01 Long term (current) use of anticoagulants; Z79.82 Long term (current) use of aspirin ==

== ENCOUNTER 2020-02-12 00:16 | Day surgery (SDC) | payer OTHER | END 2020-02-12 22:48 | disposition home or self-care (01) | LOC: WOUND 00:16 | DX: L97.822 Non-pressure chronic ulcer of other part of left lower leg with fat layer exposed (principal); I87.2 Venous insufficiency (chronic) (peripheral) ==

== ENCOUNTER 2020-03-26 00:28 | Day surgery (SDC) | payer OTHER | END 2020-03-26 22:34 | disposition home or self-care (01) | LOC: WOUND 00:28 | DX: L97.822 Non-pressure chronic ulcer of other part of left lower leg with fat layer exposed (principal); I87.2 Venous insufficiency (chronic) (peripheral); I10 Essential (primary) hypertension; E66.01 Morbid (severe) obesity due to excess calories; Z68.44 Body mass index [BMI] 60.0-69.9, adult; Z79.899 Other long term (current) drug therapy ==

== ENCOUNTER 2020-04-02 00:10 | Day surgery (SDC) | payer OTHER | END 2020-04-02 23:05 | disposition home or self-care (01) | LOC: WOUND 00:10 | DX: L97.822 Non-pressure chronic ulcer of other part of left lower leg with fat layer exposed (principal); I87.2 Venous insufficiency (chronic) (peripheral); I10 Essential (primary) hypertension; E66.01 Morbid (severe) obesity due to excess calories; Z68.43 Body mass index [BMI] 50.0-59.9, adult; Z79.01 Long term (current) use of anticoagulants; Z79.899 Other long term (current) drug therapy ==

== ENCOUNTER 2020-04-09 00:18 | Day surgery (SDC) | payer OTHER | END 2020-04-09 22:35 | disposition home or self-care (01) | LOC: WOUND 00:18 | DX: L97.822 Non-pressure chronic ulcer of other part of left lower leg with fat layer exposed (principal); I87.2 Venous insufficiency (chronic) (peripheral) ==

== ENCOUNTER 2020-04-16 16:27 | Day surgery (SDC) | payer OTHER | END 2020-04-21 22:40 | disposition home or self-care (01) | LOC: WOUND 16:27 | DX: L97.822 Non-pressure chronic ulcer of other part of left lower leg with fat layer exposed (principal); I87.2 Venous insufficiency (chronic) (peripheral) ==

== ENCOUNTER 2020-04-23 00:29 | Day surgery (SDC) | payer OTHER | END 2020-04-23 22:44 | disposition home or self-care (01) | LOC: WOUND 00:29 | DX: L97.822 Non-pressure chronic ulcer of other part of left lower leg with fat layer exposed (principal); I87.2 Venous insufficiency (chronic) (peripheral) ==

== ENCOUNTER 2020-04-30 00:12 | Day surgery (SDC) | payer OTHER | END 2020-04-30 22:37 | disposition home or self-care (01) | LOC: WOUND 00:12 | DX: L97.822 Non-pressure chronic ulcer of other part of left lower leg with fat layer exposed (principal); I87.2 Venous insufficiency (chronic) (peripheral) ==

== ENCOUNTER 2020-05-07 00:46 | Day surgery (SDC) | payer OTHER | END 2020-05-07 22:51 | disposition home or self-care (01) | LOC: WOUND 00:46 | DX: L97.822 Non-pressure chronic ulcer of other part of left lower leg with fat layer exposed (principal); I87.2 Venous insufficiency (chronic) (peripheral) ==

== ENCOUNTER 2020-05-14 00:16 | Day surgery (SDC) | payer OTHER | END 2020-05-14 22:54 | disposition home or self-care (01) | LOC: WOUND 00:16 | DX: L97.822 Non-pressure chronic ulcer of other part of left lower leg with fat layer exposed (principal); I87.2 Venous insufficiency (chronic) (peripheral) | CPT/HCPCS: G0463 ==

== ENCOUNTER 2022-06-26 12:27 | Inpatient (IN) | payer OTHER ==
[~2022-06-26] VITALS: Ht 188 cm; Wt 164.9 kg
[2022-06-26 15:49] LABS: BASOPHILS ABSOLUTE AUTO 0.07 K/mm3 (0.00-0.23); BASOPHILS PERCENT AUTO 1 % (0-2); EOSINOPHILS PERCENT AUTO 1 % (0-6); Hematocrit 38.1 % (37.0-53.0); Hemoglobin 12.6 g/dL (13.5-17.5); IMMATURE GRAN ABSOLUTE AUTO 0.02 K/mm3 (0.00-0.10); IMMATURE GRAN PERCENT AUTO 0 % (0-1); LYMPHOCYTES ABSOLUTE AUTO 2.05 K/mm3 (0.84-5.20); LYMPHOCYTES PERCENT AUTO 26 % (21-46); MONOCYTES PERCENT AUTO 6 % (4-13); Mean Corpuscular HGB 29.4 pg (26.0-34.0); Mean Corpuscular HGB Conc 33.1 g/dL (31.5-36.5); Mean Corpuscular Volume 89 fL (80-100); Mean Platelet Volume 10.9 fL (9.1-12.4); NEUTROPHILS ABSOLUTE AUTO 5.07 K/mm3 (1.96-9.15); NEUTROPHILS PERCENT AUTO 65 % (41-73); Platelet Count 386 K/mm3 (150-400); RDW Coefficient Variation 13.1 % (11.7-14.2); Red Blood Cell Count 4.29 M/mm3 (4.30-5.90); White Blood Cell Count 7.81 K/mm3 (4.00-11.30)
[2022-06-26 16:07] LABS: Bun/Creatinine Ratio 13.1 (12.0-20.0); Creatinine, Blood 0.76 mg/dL (0.60-1.20); Potassium, Blood 4.1 mmol/L (3.5-5.5)
[2022-06-26 16:14] LABS: International Normalized Ratio 1.12; Prothrombin Time Results 11.7 Sec (9.7-11.5)
--- NOTE | 2022-06-26 18:46 | NUR ---
ADMIT FROM ER 1824: RECEIVED REPORT FROM CONCHIS HERMAN. 1839: ARRIVED FROM ER VIA GURNEY. PT ABLE TO STAND AND PLACE HIMSELF IN BED. BED SCALE WEIGHED PT. 169KG. VANCO INFUSING IN L AC IV ON PUMP. MADE PT COMFORTABLE, ORIENTED TO ROOM AND UNIT ROUTINE. CALL LIGHT WITHIN REACH. REPORT TO BENITO HERMAN
--- NOTE | 2022-06-27 04:55 | NUR ---
Summary: Patient admitted to unit from ER this evening. Aox4. Patient able to ambulate with SBA. Consent and pictures for wound completed and placed in chart. Placed patient on tele and he was running in the 130s occasionally spiking up to 150s at rest. Notified MD recieved orders for IV lopressor and IV fluids. Patient ended up needing two doses of IV lopressor. MD aware and stated to notify if HR sustaining over 120. Also patient was started on oral lopressor. BP remained stable. Patient NPO. Covered patient leg wound with non adherant gauze and kerlix. Patient states he has not been to the doctor in about a year and has not taken any medication in a year but he was previously on warfarin, meteprolol and another heart med that starts with "D". Medicated for pain per EMAR. HR now stable <120 on tele. Will continue to monitor through rest of shift.
[2022-06-27 05:06] LABS: BASOPHILS ABSOLUTE AUTO 0.05 K/mm3 (0.00-0.23); BASOPHILS PERCENT AUTO 1 % (0-2); EOSINOPHILS ABSOLUTE AUTO 0.11 K/mm3 (0.00-0.68); EOSINOPHILS PERCENT AUTO 2 % (0-6); Hematocrit 33.7 % (37.0-53.0); IMMATURE GRAN ABSOLUTE AUTO 0.01 K/mm3 (0.00-0.10); IMMATURE GRAN PERCENT AUTO 0 % (0-1); LYMPHOCYTES ABSOLUTE AUTO 1.62 K/mm3 (0.84-5.20); LYMPHOCYTES PERCENT AUTO 24 % (21-46); MONOCYTES ABSOLUTE AUTO 0.49 K/mm3 (0.16-1.47); MONOCYTES PERCENT AUTO 7 % (4-13); Mean Corpuscular HGB 28.9 pg (26.0-34.0); Mean Corpuscular HGB Conc 32.6 g/dL (31.5-36.5); Mean Corpuscular Volume 89 fL (80-100); NEUTROPHILS PERCENT AUTO 67 % (41-73); Platelet Count 321 K/mm3 (150-400); RDW Standard Deviation 41.9 fL (35.1-46.3); White Blood Cell Count 6.78 K/mm3 (4.00-11.30)
[2022-06-27 05:29] LABS: Albumin, Blood 2.4 g/dL (3.4-5.0); Albumin/Globulin Ratio 0.5 (0.8-1.8); Bilirubin, Total 0.8 mg/dL (0.1-1.0); Bun/Creatinine Ratio 12.5 (12.0-20.0); Calcium, Blood 8.4 mg/dL (8.5-10.1); Creatinine, Blood 0.72 mg/dL (0.60-1.20); Globulin, Blood 4.6 g/dL (2.2-4.0); Potassium, Blood 3.6 mmol/L (3.5-5.5)
[2022-06-27 16:42] LABS: Vancomycin, Trough 20.5 ug/mL (5.0-10.0)
--- NOTE | 2022-06-27 19:16 | NUR ---
SHIFT SUMMARY PT WAS NPO UNTIL SURGICAL CONSULT BY DR. REEVES. ADVANCED TO REGULAR DIET BUT WILL RETURN TO NPO AT 06/28 FOR A POTENTIAL CONSULT FROM INTERVENTONAL RADIOLOGY, TO CONSULT FOR VASCULAR SURGERY. WOUND WAS REDRESSED BY THIS RN, PLACED NON ADHERENT PADS AND WRAPPED WITH KERLEX. ELEVATED EXTREMITY ON A PILLOW. PT DENIES PAIN. PT IS A&OX4, WILL CALL APPROPRIATELY AND USES URINAL AT BEDSIDE INDEPENDENTLY. HE CAN AMBULATE WITH A FWW TO THE BATHROOM.
[2022-06-28 05:03] LABS: BASOPHILS ABSOLUTE AUTO 0.06 K/mm3 (0.00-0.23); BASOPHILS PERCENT AUTO 1 % (0-2); EOSINOPHILS ABSOLUTE AUTO 0.21 K/mm3 (0.00-0.68); EOSINOPHILS PERCENT AUTO 2 % (0-6); Hematocrit 36.7 % (37.0-53.0); Hemoglobin 12.1 g/dL (13.5-17.5); IMMATURE GRAN ABSOLUTE AUTO 0.02 K/mm3 (0.00-0.10); IMMATURE GRAN PERCENT AUTO 0 % (0-1); LYMPHOCYTES ABSOLUTE AUTO 2.19 K/mm3 (0.84-5.20); LYMPHOCYTES PERCENT AUTO 23 % (21-46); MONOCYTES ABSOLUTE AUTO 0.43 K/mm3 (0.16-1.47); MONOCYTES PERCENT AUTO 5 % (4-13); Mean Corpuscular Volume 88 fL (80-100); NEUTROPHILS ABSOLUTE AUTO 6.69 K/mm3 (1.96-9.15); NEUTROPHILS PERCENT AUTO 70 % (41-73); Platelet Count 373 K/mm3 (150-400); RDW Coefficient Variation 13.1 % (11.7-14.2); RDW Standard Deviation 42.5 fL (35.1-46.3); Red Blood Cell Count 4.17 M/mm3 (4.30-5.90)
[2022-06-28 05:20] LABS: Bun/Creatinine Ratio 11.8 (12.0-20.0); Calcium, Blood 8.8 mg/dL (8.5-10.1); Creatinine, Blood 0.76 mg/dL (0.60-1.20)
--- NOTE | 2022-06-28 06:04 | NUR ---
Summary: Patient did well over night. No acute events. VSS. Wound has a lot of drainage. Dressing changed this morning around 0400. Thouroughly cleansed, applied non adhearant pads, abd pads and kerlix. Also cleaned patients feet, they were dark and crusted over on the bottoms. Took skin pen and outlined redness on patient leg as it looked like it was increasing. Will continue to monitor rest of shift. Bedding changed and leg wiped down with CHG wipes. IV abx given.
--- NOTE | 2022-06-28 10:06 | NUR ---
WOUND PHOTO AND ASSESSMENT IN PT HARD CHART. WOUND CARE INSTUCTIONS IN [facility]. PT HAS CONSULT WITH IR TODAY. PT WILL NEED FOLLOW UP WITH HH OR WC ON DC
--- NOTE | 2022-06-28 14:07 | NUR ---
PATIENT LEFT THE ROOM AT THIS TIME, TRANSPORTED VIA BED TO DAY SURGERY.
--- NOTE | 2022-06-28 16:48 | NUR ---
PATIENT LEFT THE ROOM AROUND 1407 FOR PROCEDURE PERFORM BY DR. Mitchell, IRPrince FOR ARTERY OCCLUSION. PATIENT WAS TRANSFERRED TO PCU 5 AFTER PROCEDURE. REPORT GIVEN TO CABINET PROFESSIONALVIRGIL APODACA AROUND 1640.
[2022-06-29 04:22] LABS: Hematocrit 34.4 % (37.0-53.0); Hemoglobin 11.2 g/dL (13.5-17.5)
--- NOTE | 2022-06-29 05:28 | NUR ---
AUTOMOBILE DAMAGE APPRAISER SUMMARY PT IS ALERT AND ORIENTED COMMUNICATING APPROPRIATELY W STAFF. PT'S R GROIN ACCESS SITE REMAINS C/D/I W NO S/S OF BLEEDING, SWELLING OR TENDERNESS. PT'S L LEG REWRAPPED AT START OF SHIFT PER WOUND CARE ORDER. TELE HAS SHOWN AFIB 100-145 THIS SHIFT BECOMING FASTER THE NIGHT WENT ON. PT RECIEVED IV LOPRESSORE X2 THIS SHIFT W MINIMAL EFFECT. O2 SATS >92% ON RM AIR. BP WNL AND STABLE THIS SHIFT. PT HAS DENIED ANY PAIN OR NAUSEA THIS SHIFT. WILL REPORT TO ONCOMING RN.
[2022-06-29 07:09] LABS: Bun/Creatinine Ratio 10.3 (12.0-20.0); Calcium, Blood 8.4 mg/dL (8.5-10.1); Creatinine, Blood 0.87 mg/dL (0.60-1.20)
[2022-06-30 03:48] LABS: BASOPHILS ABSOLUTE AUTO 0.04 K/mm3 (0.00-0.23); BASOPHILS PERCENT AUTO 0 % (0-2); EOSINOPHILS ABSOLUTE AUTO 0.38 K/mm3 (0.00-0.68); EOSINOPHILS PERCENT AUTO 3 % (0-6); Hematocrit 33.4 % (37.0-53.0); IMMATURE GRAN ABSOLUTE AUTO 0.05 K/mm3 (0.00-0.10); IMMATURE GRAN PERCENT AUTO 0 % (0-1); LYMPHOCYTES ABSOLUTE AUTO 1.48 K/mm3 (0.84-5.20); LYMPHOCYTES PERCENT AUTO 11 % (21-46); MONOCYTES ABSOLUTE AUTO 0.65 K/mm3 (0.16-1.47); MONOCYTES PERCENT AUTO 5 % (4-13); Mean Corpuscular HGB Conc 32.9 g/dL (31.5-36.5); Mean Corpuscular Volume 88 fL (80-100); Mean Platelet Volume 11.1 fL (9.1-12.4); NEUTROPHILS ABSOLUTE AUTO 10.35 K/mm3 (1.96-9.15); NEUTROPHILS PERCENT AUTO 80 % (41-73); Platelet Count 283 K/mm3 (150-400); RDW Coefficient Variation 13.3 % (11.7-14.2); RDW Standard Deviation 42.5 fL (35.1-46.3); Red Blood Cell Count 3.79 M/mm3 (4.30-5.90); White Blood Cell Count 12.95 K/mm3 (4.00-11.30)
[2022-06-30 04:20] LABS: Albumin, Blood 2.2 g/dL (3.4-5.0); Albumin/Globulin Ratio 0.5 (0.8-1.8); Bilirubin, Total 0.6 mg/dL (0.1-1.0); Bun/Creatinine Ratio 11.9 (12.0-20.0); Calcium, Blood 8.2 mg/dL (8.5-10.1); Creatinine, Blood 0.84 mg/dL (0.60-1.20); Globulin, Blood 4.6 g/dL (2.2-4.0); Potassium, Blood 3.8 mmol/L (3.5-5.5); Total Protein, Blood 6.8 g/dL (6.4-8.2)
--- NOTE | 2022-06-30 05:08 | NUR ---
SHIFT SUMMARY PT A&Ox4, CALLS AND COMMUNICATES NEEDS APPROPRIATELY, VSS, SpO2> 92% RA, DENIES SOB. BP SOFT WITH SBP 90-110's, PT ASYMPTOMATIC, AFIB 90-110's, DENIES CP/PRESSURE. PT SBA, USES URINAL AT BEDSIDE IND. PROVIDED DAILY DRESSING CHANGE PER WOUND CARE ORDER. R GROIN ACCESS SITE REMAINS C/D/I WITH NO S/S OF BLEEDING, SWELLING, OR TENDERNESS. NO ACUTE EVENTS THIS SHIFT, WILL REPORT TO DAY SHIFT RN.
--- NOTE | 2022-06-30 18:37 | NUR ---
SHIFT SUMMARY/TRANSFER NOTE PT A&OX4. SP02>90% ON RA. TELEMETRY READ AFIB, HR 90'S-130'S, BP SOFT. USED URINAL TO VOID. UP TO BATHROOM TO HAVE BM X2. FLUIDS INFUSED PER EMAR. MD'SX3 WERE IN ROOM IN AM TO ASSESS PT AND PT'S RASH/LEGS. BENADRYL STARTED AND GIVEN PER EMAR. PT MEDICAL TELE STATUS, REPORT GIVEN TO EDDIE. PT TRANSFERRED AT END OF SHIFT TO MEDICAL FLOOR.
[2022-07-01 06:53] LABS: Hemoglobin 11.3 g/dL (13.5-17.5); Mean Corpuscular HGB 28.9 pg (26.0-34.0); Mean Corpuscular HGB Conc 32.3 g/dL (31.5-36.5); Mean Corpuscular Volume 90 fL (80-100); Platelet Count 290 K/mm3 (150-400); RDW Coefficient Variation 13.5 % (11.7-14.2); RDW Standard Deviation 44.1 fL (35.1-46.3); Red Blood Cell Count 3.91 M/mm3 (4.30-5.90); White Blood Cell Count 10.85 K/mm3 (4.00-11.30)
[2022-07-01 07:13] LABS: Bun/Creatinine Ratio 9.5 (12.0-20.0); Calcium, Blood 8.2 mg/dL (8.5-10.1); Creatinine, Blood 0.84 mg/dL (0.60-1.20); Potassium, Blood 3.9 mmol/L (3.5-5.5)
--- NOTE | 2022-07-01 07:46 | NUR ---
Shift Summary Pt has afib and runs tachycardic 110-150. Pt had Metropolol scheduled for 2100 but had a systolic of 108, called hospitalist who ordered to hold 50 of his 150mg dose. Rcving Q4 IV ABX for cellulitis of LLE, switched from vancomyacin and rocephin to Oxacillin after he developed a rash from earlier treatment. Pt occasionally called out 'ow ow' but when asked said his pain was only 2/10 and refused Tylenol. Pt running LR @ 150 and rcvind IV Benadryl 25 mg which was tolerated well. No acute events, pleasant and cooperative with care.
--- NOTE | 2022-07-01 12:16 | NUR ---
RN NOTE MR RODRIGUEZ IS A&OX4. UP AMBULATING WITH WALKER IN HIS ROOM WITH PT, STEADY GAIT. VENOUS DOPPLAR RLE DONE THIS AM. WOUND DRESSING DONE TO L ANKLE THIS AM, PHOTOGRAPHS TAKEN WITH PT PERMISSION. DOPPLAR PEDAL PULSES AUDIABLE, LEFT STRONGER THAN RIGHT. RIGHT FOOT EXTREEMLY SENSITIVE TO MILD TOUCH. RENESS TO BUTTOCKS AND LEGS WITH MARKER PEN OUTLINES, SLIGHTLY OVER PEN LINES, SEEN BY MDS THIS AM. SKIN TO BACK OF LEGS AND BUTTOCKS PEELING ON REDDENED AREAS. IVF STOPPED THIS AM, PT SAID HE IS DRINKING WELL. TKO NS FOR IV ABX Q4HRS. BED LOW, CALL LIGHT IN REACH.
--- NOTE | 2022-07-01 17:47 | NUR ---
SHIFT SUMMARY SEE EARLIER NOTE. MR RODRIGUEZ SAID THAT HE IS COMFORTABLE, SLEPT THIS AFTERNOON AFTER BEING UP WALKING AND HAVING HIS DRESSING CHANGE DONE AND DOPPLAR US THIS MORNING. IV ABX Q4HRS CONTINUE. BLE EDEMA LEFT GREATER THAN RIGHT. RIGHT FOOT VERY SENSITIVE TO MINIMAL TOUCH. REDNESS TO BUTTOCKS AND LEGS PER PREVIOUS NOTE. BED LOW, CALL LIGHT IN REACH.
[2022-07-02 04:56] LABS: BASOPHILS ABSOLUTE AUTO 0.09 K/mm3 (0.00-0.23); BASOPHILS PERCENT AUTO 1 % (0-2); EOSINOPHILS ABSOLUTE AUTO 0.34 K/mm3 (0.00-0.68); EOSINOPHILS PERCENT AUTO 3 % (0-6); Hemoglobin 11.1 g/dL (13.5-17.5); IMMATURE GRAN ABSOLUTE AUTO 0.02 K/mm3 (0.00-0.10); IMMATURE GRAN PERCENT AUTO 0 % (0-1); LYMPHOCYTES ABSOLUTE AUTO 1.72 K/mm3 (0.84-5.20); LYMPHOCYTES PERCENT AUTO 17 % (21-46); MONOCYTES ABSOLUTE AUTO 0.57 K/mm3 (0.16-1.47); MONOCYTES PERCENT AUTO 6 % (4-13); Mean Corpuscular HGB 28.9 pg (26.0-34.0); Mean Corpuscular HGB Conc 32.6 g/dL (31.5-36.5); Mean Corpuscular Volume 89 fL (80-100); Mean Platelet Volume 11.2 fL (9.1-12.4); NEUTROPHILS ABSOLUTE AUTO 7.26 K/mm3 (1.96-9.15); NEUTROPHILS PERCENT AUTO 73 % (41-73); Platelet Count 306 K/mm3 (150-400); RDW Coefficient Variation 13.4 % (11.7-14.2); RDW Standard Deviation 43.6 fL (35.1-46.3); Red Blood Cell Count 3.84 M/mm3 (4.30-5.90)
[2022-07-02 05:40] LABS: Albumin, Blood 2.2 g/dL (3.4-5.0); Albumin/Globulin Ratio 0.5 (0.8-1.8); Bilirubin, Total 0.3 mg/dL (0.1-1.0); Calcium, Blood 8.7 mg/dL (8.5-10.1); Creatinine, Blood 0.83 mg/dL (0.60-1.20); Globulin, Blood 4.7 g/dL (2.2-4.0); Potassium, Blood 3.9 mmol/L (3.5-5.5); Total Protein, Blood 6.9 g/dL (6.4-8.2)
--- NOTE | 2022-07-02 07:56 | NUR ---
Shift Summary Pt on telemetry and running tachycardic around 110. States R foot is feeling better and is less sensitive to pressure. Rcving Q4 Oxacillin for cellulitis in LLE. Slept well t/o most of the night. AOX4, independent in the room, pleasant and cooperative with care.
--- NOTE | 2022-07-02 10:35 | NUR ---
RN NOTE MR RODRIGUEZ IS A&OX4. UP AMBULATING TO THE BATHROOM INDEPENDENTLY WITH A STEADY GAIT. WALKER AT BEDSIDE. HIS SKIN REMAINS RED, THE REDNESS IS BEYOND THE PEN KUHN PRIOR. SEEN BY MDS THIS AM. REDNESS BOTH LEGS AND BUTTOCKS. RIGHT FOOT EXTREEMLY SENSITIVE TO TOUCH. HE C/O HEELS FEELING SORE THIS AM, BUT NO OBVIOUS DIFFERENCE IN THE SKIN ON HIS HEELS AND HE IS NOT LYING IN A POSITION TO PUT PRESSURE ON THEM. BOTH LEGS ARE SWOLLEN. TOES ARE DISCOLORED AND DRY SKIN. LEFT ANKLE WOUND REDRESSED THIS MORNING - MODERATE PURULENT AND BLOODY EXUDATE ON THE OLD DRESSING. HE IS DOING WELL ELEVATING HIS LEGS AT REST. AFIB ON TELE, 100-120 AT REST, UP TO 140-150 WEHN HE WALKED INTO THE BATHROOM. BED LOW, CALL LIGHT IN REACH.
--- NOTE | 2022-07-02 12:49 | NUR ---
RN NOTE METOPROLOL DOSE HELD THIS AM DUE TO SBP LESS THAN PARAMETER, THEN AGAIN AT NOON. CALLS FROM TELE THAT HR SUSTAINING AT 140. PT IS SIOTTING ON THE EDGE OF THE BED, EATING LUNCH. HE DENIES SYMPTOMS. DR THOMSON CALLED AND NOTIFIED OF HR AND BP AND METOPROLOL DOSES HELD. SHE WILL REVIEW WITH DR VERNON AND POSSIBLY MAKE CHANGES TO MEDICATIONS.
--- NOTE | 2022-07-02 14:09 | NUR ---
RN NOTE CALL FROM [facility] THAT PT UP TO 150S, PT SAID HE HAD BEEN UP TO THE BATHROOM, HR DOWN TO 117 ON TELE BOX AT THIS TIME. BP CHECK SYSTOLIC 109. DR THOMSON CALLED AND NOTIFIED. SHE GAVE TELEPHONE ORDER THAT I SHOULD GIVE 150MG METOPROLOL PO NOW, DOSE THAT WAS HELD EARLIER DUE TO LOWER BLOOD PRESSURE. ORDER ENTERED INTO [employer].
--- NOTE | 2022-07-02 16:56 | NUR ---
MADHU SUMMARY SEE PRIOR NOTES. MR RODRIGUEZ IS ON TELEMETRY IN A FIBRILLATION, AROUND 115-120 WITH RATES UP TO 150S WHEN WALKING INTO THE BATHROOM. BP/HR MANAGEMENT TODAY. SKIN REDNESS UNCHANGED, BLE EDEMA. WOUND CARE WITH MODERATE EXUDATE DONE THIS MORNING. HE HAS NOT HAD PAIN EXCEPT FOR RIGHT FOOT SENSITIVITY WHEN TOUCHED AND MINOR LEFT ANKLE DISCOMFORT WHEN FLEXED, BUT NO PAIN AT REST. HE'S BEEN CONSISTANT ABOUT ELEVATING HIS LEGS ON PILLOWS. IV ABX Q4HRS. BED LOW, CALL LIGHT IN REACH.
[2022-07-03 05:05] LABS: Hemoglobin 10.8 g/dL (13.5-17.5); Mean Corpuscular HGB Conc 32.7 g/dL (31.5-36.5); Mean Corpuscular Volume 89 fL (80-100); Mean Platelet Volume 11.3 fL (9.1-12.4); Platelet Count 279 K/mm3 (150-400); RDW Coefficient Variation 13.7 % (11.7-14.2); RDW Standard Deviation 43.7 fL (35.1-46.3); Red Blood Cell Count 3.73 M/mm3 (4.30-5.90); White Blood Cell Count 10.19 K/mm3 (4.00-11.30)
[2022-07-03 05:29] LABS: Albumin, Blood 2.2 g/dL (3.4-5.0); Albumin/Globulin Ratio 0.5 (0.8-1.8); Bilirubin, Total 0.3 mg/dL (0.1-1.0); Bun/Creatinine Ratio 11.8 (12.0-20.0); Calcium, Blood 8.5 mg/dL (8.5-10.1); Creatinine, Blood 0.85 mg/dL (0.60-1.20); Globulin, Blood 4.5 g/dL (2.2-4.0); Potassium, Blood 3.8 mmol/L (3.5-5.5); Total Protein, Blood 6.7 g/dL (6.4-8.2)
--- NOTE | 2022-07-03 05:46 | NUR ---
Shift Summary Pt had systolic BP of 105 before his 2100 dose of Metropolol was due, held dose per ordered parmamter of 110 or less. Pt heart rythm remained in Afib with a rate of 110-140 all night, tachying up to 150 during ambulation. This AM BP was 98/56, pt is asymptomatic. No dizzyness and states he feels fine. Pt R foot has more edema today and is +3, it is also very tender to the touch. Pt slept through most of the night. No acute events, pleasant and cooperative with care.
--- NOTE | 2022-07-03 09:33 | NUR ---
DIGOXIN LOAD PIGGY BACK INFUSION STARTED. INDEPENDENT CONTRACTOR NOTIFIED OF START OF INFUSION. HR 139 BPM. PT AWAKE AND ALERT. WATCHING TV. CONTINUE POC.
--- NOTE | 2022-07-03 10:17 | NUR ---
RASH PT CALLED AT 0730 COMPLAINING OF ITCHING. BODY, INCLUDING PALMS OF HIS HANDS COVERED WITH RAISED, RED RASH. RUBBED HIS BACK AND THEN MEDICATED WITH PEPCID IV AND BENADRYL IV. HELD HIS ANTIBIOTIC TO ALLOW THE ANTI HISTAMIONES TO START WORKING. TALKED WITH DR ADRIAN WHEN SHE WAS ROUNDING. SHE GAVE A VERBAL TO HOLD HIS ANTIBIOTICS. SHE WILL REVIEW HIS OTHER MEDICATIONS WELL. CONTINUE POC.
--- NOTE | 2022-07-03 17:56 | NUR ---
PT EXPRESSED IMPROVEMENT IN COMFORT AND ITCHING WITH BENADRYL AND STEROID THERAPY. PHARMACY CAME AND INTERVIEWED PT. ROCPHIN GIVEN PER ORDER. PREMEDICATED WITH SOLUMEDROL. NO CHANGE IN RASH COLOR OR SPREAD. VOIDING PER URINAL. URINE DARK LOVELY. PT DISCOMFORT FROM THE PEELING SKIN ON THE BACKS OF HIS THIGHS, TRIED TYLENOL FOR DISOCOMFT. NOT EFFECTIVE. MEDICATED WITH ULTRAM. EFFECTIVE FOR SKIN DISCOMFORT. CONTINUE POC.
--- NOTE | 2022-07-03 18:00 | NUR ---
POST ROCEPHIN PT RASH/REDNESS HAS NOT CHANGED AFTER ANTIBIOTIC TREATMENT. CONTINUE POC.
--- NOTE | 2022-07-04 04:05 | NUR ---
SHIFT SUMMARY: Pt A/Ox4 and call light appropriate. pt had c/o pain in his BLE. PRN ultram given. Wound care done to LLE this shift. No c/o SOB, nausea, or dizziness. pyrotechnic assembler called multiple times overnight stating pts HR would be in the 150's-160's, each time this would happen pt would be ambulating in room. Once pt sat back in bed his HR would return to the 110's. He was asympomatic when his HR was in the 160's. Pt has red rash throughout body but pt notes it is better than the previous days and does not itch. Iv abx given per eMar.
[2022-07-04 04:59] LABS: BASOPHILS ABSOLUTE AUTO 0.03 K/mm3 (0.00-0.23); BASOPHILS PERCENT AUTO 0 % (0-2); EOSINOPHILS PERCENT AUTO 0 % (0-6); Hematocrit 35.5 % (37.0-53.0); Hemoglobin 11.8 g/dL (13.5-17.5); IMMATURE GRAN PERCENT AUTO 1 % (0-1); LYMPHOCYTES PERCENT AUTO 6 % (21-46); MONOCYTES PERCENT AUTO 1 % (4-13); Mean Corpuscular HGB 29.3 pg (26.0-34.0); Mean Corpuscular HGB Conc 33.2 g/dL (31.5-36.5); Mean Corpuscular Volume 88 fL (80-100); Mean Platelet Volume 11.4 fL (9.1-12.4); NEUTROPHILS ABSOLUTE AUTO 20.47 K/mm3 (1.96-9.15); NEUTROPHILS PERCENT AUTO 93 % (41-73); Platelet Count 346 K/mm3 (150-400); RDW Coefficient Variation 13.3 % (11.7-14.2); RDW Standard Deviation 43.2 fL (35.1-46.3); Red Blood Cell Count 4.03 M/mm3 (4.30-5.90)
[2022-07-04 05:35] LABS: Alanine Aminotransfer (ALT/SGP 18 U/L (12-78); Albumin, Blood 2.3 g/dL (3.4-5.0); Albumin/Globulin Ratio 0.5 (0.8-1.8); Alk Phos 137 U/L (50-136); Anion Gap 7 mmol/L (6-16); Aspartate Aminotrans (AST/SGOT 16 U/L (12-37); Bilirubin, Total 0.4 mg/dL (0.1-1.0); Blood Urea Nitrogen 11 mg/dL (8-24); Bun/Creatinine Ratio 14.8 (12.0-20.0); CO2, Blood 26 mmol/L (21-32); Calcium, Blood 8.8 mg/dL (8.5-10.1); Chloride, Blood 106 mmol/L (98-108); Creatinine, Blood 0.75 mg/dL (0.60-1.20); Globulin, Blood 5.1 g/dL (2.2-4.0); Glomerular Filtration Rate 101 (60-); Glucose, Blood 157 mg/dL (70-99); Potassium, Blood 4.3 mmol/L (3.5-5.5); Sodium, Blood 139 mmol/L (136-145); Total Protein, Blood 7.4 g/dL (6.4-8.2)
--- NOTE | 2022-07-04 18:57 | NUR ---
SHIFT SUMMARY PT A/O X4; PLEASANT AND COOPERATIVE WITH CARE. RED/PEELING RASH NOTED ON THE ENTIRE BODY. TREATED PER EMR. NO COMPLAINTS THIS SHIFT. HIGH HR DUE TO AFIB. SOFT BPS.
--- NOTE | 2022-07-05 03:58 | NUR ---
SHIFT SUMMARY ADMITTED FOR CELLULITIS OF LLE. FULL CODE. ALLERGIC REACTION TO PREVIOUS ANTIB RX NOTED, HOSPITALISTS AWARE, IV BENEDRYL AND STEROIDS GIVEN THIS SHIFT. DRESSING ON LEFT LEG CHANGED THIS SHIFT. TELEMETRY: AFIB @ 122 BPM. HE IS ON RA. HYPOTENSION NOTED ON PREVIOUS SHIFTS. MONITORING ELEVATED WBC COUNTS. HE IS ON RA, A&O X4, INDEPENDENT IN ROOM.
[2022-07-05 05:34] LABS: BASOPHILS ABSOLUTE AUTO 0.02 K/mm3 (0.00-0.23); BASOPHILS PERCENT AUTO 0 % (0-2); EOSINOPHILS PERCENT AUTO 0 % (0-6); Hematocrit 34.6 % (37.0-53.0); Hemoglobin 11.2 g/dL (13.5-17.5); IMMATURE GRAN ABSOLUTE AUTO 0.17 K/mm3 (0.00-0.10); IMMATURE GRAN PERCENT AUTO 1 % (0-1); LYMPHOCYTES ABSOLUTE AUTO 1.56 K/mm3 (0.84-5.20); LYMPHOCYTES PERCENT AUTO 8 % (21-46); MONOCYTES ABSOLUTE AUTO 0.37 K/mm3 (0.16-1.47); MONOCYTES PERCENT AUTO 2 % (4-13); Mean Corpuscular HGB 29.1 pg (26.0-34.0); Mean Corpuscular HGB Conc 32.4 g/dL (31.5-36.5); Mean Corpuscular Volume 90 fL (80-100); Mean Platelet Volume 11.4 fL (9.1-12.4); NEUTROPHILS ABSOLUTE AUTO 18.48 K/mm3 (1.96-9.15); NEUTROPHILS PERCENT AUTO 90 % (41-73); Platelet Count 351 K/mm3 (150-400); RDW Coefficient Variation 13.8 % (11.7-14.2); RDW Standard Deviation 44.8 fL (35.1-46.3); Red Blood Cell Count 3.85 M/mm3 (4.30-5.90)
[2022-07-05 05:59] LABS: Alanine Aminotransfer (ALT/SGP 19 U/L (12-78); Albumin, Blood 2.5 g/dL (3.4-5.0); Albumin/Globulin Ratio 0.5 (0.8-1.8); Alk Phos 130 U/L (50-136); Anion Gap 8 mmol/L (6-16); Aspartate Aminotrans (AST/SGOT 13 U/L (12-37); Bilirubin, Total 0.2 mg/dL (0.1-1.0); Blood Urea Nitrogen 18 mg/dL (8-24); CO2, Blood 26 mmol/L (21-32); Calcium, Blood 8.9 mg/dL (8.5-10.1); Chloride, Blood 106 mmol/L (98-108); Creatinine, Blood 0.86 mg/dL (0.60-1.20); Digoxin (Lanoxin) 0.65 ug/mL (0.80-2.00); Globulin, Blood 4.8 g/dL (2.2-4.0); Glomerular Filtration Rate 97 (60-); Glucose, Blood 125 mg/dL (70-99); Potassium, Blood 4.6 mmol/L (3.5-5.5); Sodium, Blood 140 mmol/L (136-145); Total Protein, Blood 7.3 g/dL (6.4-8.2)
--- NOTE | 2022-07-05 18:48 | NUR ---
SHIFT SUMMARY NO ACUTE CHANGES DURING SHIFT. PT ALERT AND ORIENTED. CALLS APPROPRIATELY. SKIN STILL RED TINGED, PT STATES SLIGHT IMPROVEMENT NOTED. DIGOXIN DOSAGE INCREASED. DRESSING CHANGED PER ORDERS. PT INDEPENDENT IN ROOM WITH WALKER. STEROIDS TRANSITIONED TO PO. WILL CONTINUE TO MONITOR. CALL LIGHT WITHIN REACH.
--- NOTE | 2022-07-05 23:51 | NUR ---
PT LYING IN BED, AWAKE, WATCHING TV. NO APPARENT SIGNS OF DISTRESS. CALL LIGHT IS IN REACH. DENIES NEED FOR ANYTHING AT THIS TIME.
--- NOTE | 2022-07-06 06:01 | NUR ---
0200 PT LYING IN BED, EYES CLOSED, APPEARS TO BE RESTING. BREATHING IS EVEN, UNLABORED. NO APPARENT SIGNS OF DISTRESS. CALL LIGHT IS IN REACH. 0400 PT LYING IN BED, EYES CLOSED, WAKES EASILY TO VERBAL STIMULI. NO APPARENT SIGNS OF DISTRESS. DENIES NEED FOR ANYTHING AT THIS TIME. CALL LIGHT IS IN REACH.
--- NOTE | 2022-07-06 06:02 | NUR ---
PT IS AAO X 4, ON RA. REPORTS PAIN IN FEET. GOT ULTRAM AT HS. 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 PT HAS CHRONIC WOUND ON L LEG, DRESSING IS C/D/I. TELE ST 110'S TO 120'S BUT GOES UP WHEN HE GETS UP TO AMBULATE.
--- NOTE | 2022-07-06 06:07 | NUR ---
PT LYING IN BED, EYES CLOSED, APPEARS TO BE RESTING. BREATHING IS EVEN, UNLABORED. NO APPARENT SIGNS OF DISTRESS. CALL LIGHT IS IN REACH. NO OTHER CHANGES THIS SHIFT.
[2022-07-06 07:57] LABS: BASOPHILS ABSOLUTE AUTO 0.02 K/mm3 (0.00-0.23); BASOPHILS PERCENT AUTO 0 % (0-2); EOSINOPHILS ABSOLUTE AUTO 0.01 K/mm3 (0.00-0.68); EOSINOPHILS PERCENT AUTO 0 % (0-6); Hematocrit 33.7 % (37.0-53.0); IMMATURE GRAN ABSOLUTE AUTO 0.18 K/mm3 (0.00-0.10); IMMATURE GRAN PERCENT AUTO 1 % (0-1); LYMPHOCYTES ABSOLUTE AUTO 2.65 K/mm3 (0.84-5.20); LYMPHOCYTES PERCENT AUTO 18 % (21-46); MONOCYTES ABSOLUTE AUTO 0.99 K/mm3 (0.16-1.47); MONOCYTES PERCENT AUTO 7 % (4-13); Mean Corpuscular HGB 29.2 pg (26.0-34.0); Mean Corpuscular HGB Conc 32.6 g/dL (31.5-36.5); Mean Corpuscular Volume 89 fL (80-100); NEUTROPHILS ABSOLUTE AUTO 10.56 K/mm3 (1.96-9.15); NEUTROPHILS PERCENT AUTO 73 % (41-73); Platelet Count 323 K/mm3 (150-400); RDW Coefficient Variation 13.6 % (11.7-14.2); RDW Standard Deviation 44.7 fL (35.1-46.3); Red Blood Cell Count 3.77 M/mm3 (4.30-5.90); White Blood Cell Count 14.41 K/mm3 (4.00-11.30)
[2022-07-06 08:19] LABS: Bun/Creatinine Ratio 27.4 (12.0-20.0); Calcium, Blood 8.3 mg/dL (8.5-10.1); Creatinine, Blood 0.84 mg/dL (0.60-1.20); Potassium, Blood 4.3 mmol/L (3.5-5.5)
--- NOTE | 2022-07-06 16:42 | NUR ---
PT AOX4 AND COOPERATIVE OF CARE.PT HAS BEEN TREATED FOR PAIN PER EMAR. PT IS INDEPENDENT IN ROOM AND DID 2 WALKS IN HALLWAY WITH PHYSICAL THERAPY. BOTH TIMES TELE CALLED AND PT'S HR WAS UP TO 170. DR THOMOSN WAS NOTIFIED. PT WAS NOT SYMTAMATIC DURING WALK AND STATED HE FELT GOOD. BANDAGE OF L LEG WAS CHANGED AND WOUND CLEANED AND REWRAPPED. CALL LIGHT WITHIN REACH WILL CONTINUE TO MONITOR.
--- NOTE | 2022-07-07 05:09 | NUR ---
SHIFT SUMMARY: Pt A/Ox4 and call light appropriate. Pt denied pain, nausea, dizziness, SOB. Overnight tele called for increase in HR (in the 160's) each time they called pt was ambulating into the bathroom. Once he would lay back down HR would go back down. Pt still has rash but this appears to be getting better. Pt notes it is not itchy and doesn't hurt. He is hoping to d/c soon.
[2022-07-07 07:34] LABS: Hemoglobin 11.5 g/dL (13.5-17.5); Mean Corpuscular HGB 29.1 pg (26.0-34.0); Mean Corpuscular HGB Conc 32.9 g/dL (31.5-36.5); Mean Corpuscular Volume 89 fL (80-100); Mean Platelet Volume 10.8 fL (9.1-12.4); Platelet Count 329 K/mm3 (150-400); RDW Coefficient Variation 13.5 % (11.7-14.2); RDW Standard Deviation 43.8 fL (35.1-46.3); Red Blood Cell Count 3.95 M/mm3 (4.30-5.90); White Blood Cell Count 11.28 K/mm3 (4.00-11.30)
[2022-07-07 07:51] LABS: Albumin, Blood 2.6 g/dL (3.4-5.0); Albumin/Globulin Ratio 0.6 (0.8-1.8); Bilirubin, Total 0.3 mg/dL (0.1-1.0); Bun/Creatinine Ratio 26.7 (12.0-20.0); Calcium, Blood 8.5 mg/dL (8.5-10.1); Creatinine, Blood 0.86 mg/dL (0.60-1.20); Globulin, Blood 4.4 g/dL (2.2-4.0)
[2022-07-07] MEDS ORDERED: DIGOX250 MC1 PO (12:22)
[2022-07-07] MEDS ORDERED: BENADRYL25 MG PO (12:23)
[2022-07-07] MEDS ORDERED: METO25 PO (12:24)
[2022-07-07] MEDS ORDERED: Deltasone 10 mg10 MG PO (12:29)
[2022-07-07] MEDS ORDERED: XARELTO20 MG PO (12:30)
--- NOTE | 2022-07-07 13:20 | NUR ---
DISCHARGE SUMMARY DISCHARGE FOLLOWUP, DISCHARGE, AND MEDICATION INSTRUCTIONS GIVEN TO PATIENT. PT VOICED COMPLETE UNDERSTANDING AND HAS NO QUESTIONS AT THIS TIME. IV REMOVED WITH CATHETER TIP INTACT. TELE BOX REMOVED AND RETURNED TO MONITOR.WILL CONTINUE TO MONITOR WHILE PT ON FLOOR. CALL LIGHT WITHIN REACH.
== END 2022-07-07 13:38 | disposition home or self-care (01) | DRG 253 ==
LOC: ER 12:27 → MEDS 12:28 → PCU 06-28 16:09 → MEDS 06-29 15:39 → PCU 06-29 15:39 → MEDS 06-30 19:07
PROVIDERS: Family Medicine; Student in an Organized Health Care Education/Training Program; Surgery; ADMIT Hospitalist
PROC: 047S3ZZ Dilation of Left Posterior Tibial Artery, Percutaneous Approach (ICD-10-PCS; principal; 2022-07-05)
PROC: 047W3ZZ Dilation of Left Foot Artery, Percutaneous Approach (ICD-10-PCS; 2022-07-05)
DX: I70.243 Atherosclerosis of native arteries of left leg with ulceration of ankle (principal); I48.20 Chronic atrial fibrillation, unspecified; L03.116 Cellulitis of left lower limb; Z68.43 Body mass index [BMI] 50.0-59.9, adult; Z28.21 Immunization not carried out because of patient refusal; K21.9 Gastro-esophageal reflux disease without esophagitis; L97.329 Non-pressure chronic ulcer of left ankle with unspecified severity; I10 Essential (primary) hypertension; E66.9 Obesity, unspecified; I87.2 Venous insufficiency (chronic) (peripheral); L27.0 Generalized skin eruption due to drugs and medicaments taken internally; T36.1X5A Adverse effect of cephalosporins and other beta-lactam antibiotics, initial encounter; Z86.718 Personal history of other venous thrombosis and embolism; Z79.01 Long term (current) use of anticoagulants
CPT/HCPCS: 36415; 37228; 37232; 73590; 73706; 75625; 75635; 75716; 75774; 76937; 80048; 80053; 80162; 80202; 83735; 83880; 85014; 85018; 85025; 85027; 85610; 93926; 93971; 96365-59; 96366; 96366-59; 96375; 96376; 97110; 97116; 97162; 97530; 99152; 99153; 99285-25; A9270; C1725; C1760; C1769; C1887; C1894; G0378; J0696; J1160; J1200; J1644; J2250; J2700; J2930; J3010; J3370; J7030; J7040; J7050; J7120; J7512; Q9967

== ENCOUNTER 2023-02-05 17:53 | Inpatient (IN) | payer OTHER ==
[~2023-02-05] VITALS: Ht 188 cm; Wt 146.6 kg
[~2023-02-05 17:53] MED LIST changes: +BENADRYL25 MG PO; +DIGOX250 MC1 PO; +Deltasone 10 mg10 MG PO
[2023-02-05 19:57] LABS: BASOPHILS ABSOLUTE AUTO 0.05 K/mm3 (0.00-0.23); BASOPHILS PERCENT AUTO 1 % (0-2); EOSINOPHILS ABSOLUTE AUTO 0.09 K/mm3 (0.00-0.68); EOSINOPHILS PERCENT AUTO 1 % (0-6); Hematocrit 31.9 % (37.0-53.0); Hemoglobin 10.6 g/dL (13.5-17.5); IMMATURE GRAN ABSOLUTE AUTO 0.04 K/mm3 (0.00-0.10); IMMATURE GRAN PERCENT AUTO 0 % (0-1); LYMPHOCYTES ABSOLUTE AUTO 1.89 K/mm3 (0.84-5.20); LYMPHOCYTES PERCENT AUTO 21 % (21-46); MONOCYTES PERCENT AUTO 9 % (4-13); Mean Corpuscular HGB 26.8 pg (26.0-34.0); Mean Corpuscular HGB Conc 33.2 g/dL (31.5-36.5); Mean Corpuscular Volume 81 fL (80-100); Mean Platelet Volume 10.3 fL (9.1-12.4); NEUTROPHILS PERCENT AUTO 68 % (41-73); Platelet Count 388 K/mm3 (150-400); RDW Coefficient Variation 14.3 % (11.7-14.2); RDW Standard Deviation 41.6 fL (35.1-46.3); Red Blood Cell Count 3.96 M/mm3 (4.30-5.90); White Blood Cell Count 9.07 K/mm3 (4.00-11.30)
[2023-02-05 20:09] LABS: Albumin, Blood 2.5 g/dL (3.4-5.0); Albumin/Globulin Ratio 0.5 (0.8-1.8); Bilirubin, Total 0.7 mg/dL (0.1-1.0); Bun/Creatinine Ratio 9.1 (12.0-20.0); Calcium, Blood 8.3 mg/dL (8.5-10.1); Creatinine, Blood 0.77 mg/dL (0.60-1.20); Potassium, Blood 3.3 mmol/L (3.5-5.5); Total Protein, Blood 7.5 g/dL (6.4-8.2)
[2023-02-05 23:25] VITALS: BP 127/79
--- NOTE | 2023-02-06 00:39 | NUR ---
PATIENT IS A NEW ADMIT FROM THE ED. SBA TRANSFER FROM [facility] TO BED. AXOX [address] CLOTHES. DENIES CHEST PAIN, SOB, AND N/V. MULTIPLE OPEN WOUNDS LEFT LOWER EXTREMETY FROM ANKLE TO CALF. CONSENT TO PHOTOGRAPH SIGNED AND PICTURES IN CHART. BORDER MARKED PER ORDERS. REPORTED HE HAD MAGGOTS IN WOUND AND CAME TO ER. PATIENT REPORTS WOUND NOTED IN 2018 AND LAST VISIT TO WOUND CLINIC A YEAR AGO. VERBALIZED NON-COMPLIANT WITH HIS MEDICATIONS. ORIENTED TO ROOM AND CALL LIGHT SYSTEM. TELEMETRY PLACED AND TECH REPORTS AFIB 124. WCTM.
--- NOTE | 2023-02-06 02:46 | NUR ---
HR 118-124 AND IV LOPRESSOR 5 MG GIVEN FOR HR >110. TELEMETRY MONITORED. IV ABX INFUSING. WOUND WRAPPED WITH DRESSING. WCSHABANA.
[2023-02-06 03:06] VITALS: BP 103/69
--- NOTE | 2023-02-06 03:06 | NUR ---
TELE MONITOR REPORTS HR DOWN TO AFIB 112. WCTM.
--- NOTE | 2023-02-06 03:48 | NUR ---
TELE MONITOR REPORTS HR DOWN TO AFIB 99-108 FROM HR 124. WCTM
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
[2023-02-06 05:27] LABS: Bun/Creatinine Ratio 8.7 (12.0-20.0); Calcium, Blood 8.2 mg/dL (8.5-10.1); Creatinine, Blood 0.8 mg/dL (0.60-1.20); Potassium, Blood 3.4 mmol/L (3.5-5.5)
[2023-02-06 07:31] VITALS: BP 109/70
--- NOTE | 2023-02-06 12:21 | NUR ---
WOUND CARE PT WITH EXTENSIVE FULL THICKNESS ULCERATION TO LLE WITH MAGGOT INFESTATION. DUE TO MAGGOTS AND NECROTIC TISSUE IN WOUND BED WOULD RECOMMEND DAKINS WET SOAKED WET TO DRY BID FOR 3 DAYS. THIS SHOULD KILL ANY LARVA AND REDUCE BIOFILM IN WOUND BEDS. AMRIK IS WNL. PT REFERRAL TO WOUND CLINIC AT [facility] FOR COMPRESSION THERAPY.
[2023-02-06 15:03] VITALS: BP 91/74
--- NOTE | 2023-02-06 18:18 | NUR ---
SHIFT SUMMARY PT AOX4, INDEPENDENT IN THE ROOM. WOUND CONSULT TODAY, WOUND CARE ORDERS IN THE CHART FOR BID. THE WOUND CLINIC WILL CONDUCT THE DAY SHIFT CHANGES. HE HAS HAD NO C/O PAIN/N/V. HE HAS BEEN RESTING COMFORTABLY IN BED, WATCHING TV. PT WAS EDUCATED ON IGNITION SOURCES AND RISK OF INJURY WHILE OXYGEN IS IN USE. THE PT IS ON RA. CALL LIGHT WTIHIN REACH, BED IN THE LOWEST POSITION. WILL REPORT TO ONCOMING NURSE.
[2023-02-06 21:26] VITALS: BP 102/76
--- NOTE | 2023-02-07 04:50 | NUR ---
SHIFT SUMMARY. SHIFT MOSTLY UNREMARKABLE. PT TOOK 2100 AND 0000 MEDICATIONS WITHOUT DIFFICULTY. DRESSING CHANGE ON LEG PERFORMED JUST BEFORE MIDNIGHT WITHOUT DIFFICULTY. MILD PAIN REPORTED WITH DRESSING CHANGE BUT OTHERWISE PT HAS NOT COMPLAINED OF PAIN THROUGHOUT SHIFT. AOX4, PLEASANT, COOPERATIVE WITH CARE. PT COMPLAINED OF NOT BEING ABLE TO SLEEP LAST NIGHT BUT HAS BEEN ABLE TO SLEEP THROUGH MOST OF SHIFT TONIGHT. BED LOCKED IN LOWEST POSITION. CALLS APPROPRIATELY. CALL LIGHT LEFT WITHIN REACH.
[2023-02-07 04:56] VITALS: BP 109/74
[2023-02-07 05:07] LABS: BASOPHILS ABSOLUTE AUTO 0.04 K/mm3 (0.00-0.23); BASOPHILS PERCENT AUTO 1 % (0-2); EOSINOPHILS ABSOLUTE AUTO 0.13 K/mm3 (0.00-0.68); EOSINOPHILS PERCENT AUTO 2 % (0-6); Hematocrit 30.4 % (37.0-53.0); Hemoglobin 9.9 g/dL (13.5-17.5); IMMATURE GRAN ABSOLUTE AUTO 0.01 K/mm3 (0.00-0.10); IMMATURE GRAN PERCENT AUTO 0 % (0-1); LYMPHOCYTES ABSOLUTE AUTO 1.85 K/mm3 (0.84-5.20); LYMPHOCYTES PERCENT AUTO 33 % (21-46); MONOCYTES ABSOLUTE AUTO 0.48 K/mm3 (0.16-1.47); MONOCYTES PERCENT AUTO 9 % (4-13); Mean Corpuscular HGB 26.2 pg (26.0-34.0); Mean Corpuscular HGB Conc 32.6 g/dL (31.5-36.5); Mean Corpuscular Volume 80 fL (80-100); Mean Platelet Volume 10.1 fL (9.1-12.4); NEUTROPHILS ABSOLUTE AUTO 3.11 K/mm3 (1.96-9.15); NEUTROPHILS PERCENT AUTO 55 % (41-73); Platelet Count 343 K/mm3 (150-400); RDW Coefficient Variation 14.4 % (11.7-14.2); RDW Standard Deviation 42.5 fL (35.1-46.3); Red Blood Cell Count 3.78 M/mm3 (4.30-5.90); White Blood Cell Count 5.62 K/mm3 (4.00-11.30)
[2023-02-07 05:52] LABS: Bun/Creatinine Ratio 11.3 (12.0-20.0); Creatinine, Blood 0.8 mg/dL (0.60-1.20); Potassium, Blood 3.8 mmol/L (3.5-5.5)
[2023-02-07 07:31] VITALS: BP 120/93
--- NOTE | 2023-02-07 14:05 | NUR ---
WOUND CARE LLE DRESSING CHANGED PER ORDER. WOUND BEDS ARE IMPROVED. NO MAGGOTS NOTED. EDUCATION ON NUTRITION FOR WOUND HEALING AND FOLLOW UP CARE REINFORCED. PT STATES UNDERSTANDING. PT TOLERATED WELL
[2023-02-07 15:39] VITALS: BP 91/74
--- NOTE | 2023-02-07 18:36 | NUR ---
SHIFT SUMMARY ALERT, ORIENTED, INDEPENDENT IN ROOM. ROOM AIR, VSS. TOLERATING REGULAR DIET AND LIQUIDS. VOIDING WELL. LLE CELLULITIS IMPROVED THROUGHOUT DAY. REDNESS, HEAT, AND SWELLING DECREASED. DRESSING CHANGED BY STATION USHER. ROUTINE IV ABX. MEDICATED FOR PAIN PER EMAR. WOUND CULTURE POSITIVE FOR MRSA, INITIATED CONTACT ISOLATION. LEFT WRIST MILD SWELLING HAS REDUCED THROUGHOUT DAY, PATIENT STATES PAIN IMPROVED.
[2023-02-07 19:55] VITALS: BP 99/81
--- NOTE | 2023-02-08 04:00 | NUR ---
SHIFT SUMMARY. SHIFT HAS BEEN UNREMARKABLE. DRESSING CHANGE PERFORMED LATE LAST NIGHT, DRESSING HAS REMAINED C/D/I SINCE. NO COMPLAINTS OF PAIN THIS SHIFT. PT REMAINS INDEPENDENT WITHIN ROOM. AOX4, PLEASANT, COOPERATIVE WITH CARE. LWR REMAINS MILDLY MORE SWOLLENT THAN RIGHT BUT IT HAS IMPROVED SOMEWHAT FROM PREVIOUS SHIFT, PT AGREES. CALLS APPROPRIATELY. HAS SLEPT THROUGH MUCH OF SHIFT AFTER DRESSING CHANGE. BED LOCKED IN LOWEST POSITION. CALL LIGHT LEFT WITHIN REACH.
[2023-02-08 04:13] VITALS: BP 102/81
[2023-02-08 05:54] LABS: BASOPHILS ABSOLUTE AUTO 0.05 K/mm3 (0.00-0.23); BASOPHILS PERCENT AUTO 1 % (0-2); EOSINOPHILS ABSOLUTE AUTO 0.19 K/mm3 (0.00-0.68); EOSINOPHILS PERCENT AUTO 3 % (0-6); Hematocrit 32.5 % (37.0-53.0); Hemoglobin 10.5 g/dL (13.5-17.5); IMMATURE GRAN ABSOLUTE AUTO 0.01 K/mm3 (0.00-0.10); IMMATURE GRAN PERCENT AUTO 0 % (0-1); LYMPHOCYTES ABSOLUTE AUTO 1.84 K/mm3 (0.84-5.20); LYMPHOCYTES PERCENT AUTO 33 % (21-46); MONOCYTES ABSOLUTE AUTO 0.46 K/mm3 (0.16-1.47); MONOCYTES PERCENT AUTO 8 % (4-13); Mean Corpuscular HGB 26.4 pg (26.0-34.0); Mean Corpuscular HGB Conc 32.3 g/dL (31.5-36.5); Mean Corpuscular Volume 82 fL (80-100); Mean Platelet Volume 10.1 fL (9.1-12.4); NEUTROPHILS ABSOLUTE AUTO 3.12 K/mm3 (1.96-9.15); NEUTROPHILS PERCENT AUTO 55 % (41-73); Platelet Count 367 K/mm3 (150-400); RDW Coefficient Variation 14.5 % (11.7-14.2); RDW Standard Deviation 43.6 fL (35.1-46.3); Red Blood Cell Count 3.97 M/mm3 (4.30-5.90); White Blood Cell Count 5.67 K/mm3 (4.00-11.30)
[2023-02-08 06:25] LABS: Albumin, Blood 2.3 g/dL (3.4-5.0); Albumin/Globulin Ratio 0.5 (0.8-1.8); Bilirubin, Total 0.2 mg/dL (0.1-1.0); Bun/Creatinine Ratio 12.5 (12.0-20.0); Calcium, Blood 8.1 mg/dL (8.5-10.1); Creatinine, Blood 0.72 mg/dL (0.60-1.20); Globulin, Blood 4.8 g/dL (2.2-4.0); Potassium, Blood 4.1 mmol/L (3.5-5.5); Total Protein, Blood 7.1 g/dL (6.4-8.2)
[2023-02-08 08:09] VITALS: BP 98/71
[2023-02-08 09:43] VITALS: BP 107/79
[2023-02-08] MEDS ORDERED: SULTRIDS PO (13:08)
--- NOTE | 2023-02-08 17:15 | NUR ---
DISCHARGE NOTE- PT WAS GIVEN VERBL AND WRITTEN DISCHARGE INSTRUCTIONS AND ACKNOWLEDGED UNDERSTANDING OF THEM. IV AND TELE DC'D PRIOR TO DISCHARGE. PT WAS ESCORTED OUT VIA WC BY THE ACCESS REPRESENTATIVE WHERE HE WAS PICKED UP BY [facility]. NO S&S OF DISTRESS AT THE TIME OF DISCHARGE. WOUND CARE COMPLETED BY MOBILE APPLICATION DEVELOPMENT LEAD PRIOR TO DISCHARGE.
== END 2023-02-08 14:34 | disposition home health service (06) | DRG 607 ==
LOC: ER 17:53 → MEDS 17:54 → ENPENDDIS 02-08 10:02 → MEDS 02-08 14:34
PROVIDERS: Internal Medicine; Nurse Practitioner Acute Care; Student in an Organized Health Care Education/Training Program; ADMIT Internal Medicine
DX: B87.1 Wound myiasis (principal); I48.20 Chronic atrial fibrillation, unspecified; D64.9 Anemia, unspecified; E87.6 Hypokalemia; I10 Essential (primary) hypertension; K21.9 Gastro-esophageal reflux disease without esophagitis; B95.62 Methicillin resistant Staphylococcus aureus infection as the cause of diseases classified elsewhere; I87.2 Venous insufficiency (chronic) (peripheral); I70.201 Unspecified atherosclerosis of native arteries of extremities, right leg; Z98.890 Other specified postprocedural states; Z91.148 Patient's other noncompliance with medication regimen for other reason; Z88.1 Allergy status to other antibiotic agents; Z86.718 Personal history of other venous thrombosis and embolism; Z87.891 Personal history of nicotine dependence; Z79.899 Other long term (current) drug therapy; Z91.199 Patient's noncompliance with other medical treatment and regimen due to unspecified reason
CPT/HCPCS: 36415; 73590; 80048; 80053; 83605; 85025; 87040; 87070; 87075; 87077; 87147; 87186; 87205; 93922; 96365; 96366; 96367; 96376; 99285-25; A9270; G0378; J0736; J1650; J1956; J7050

== ENCOUNTER 2023-02-13 00:17 | Day surgery (SDC) | payer OTHER ==
[~2023-02-13 00:17] MED LIST changes: +SULTRIDS PO
== END 2023-02-13 22:55 | disposition home or self-care (01) ==
LOC: WOUND 00:17
DX: L97.822 Non-pressure chronic ulcer of other part of left lower leg with fat layer exposed (principal); I87.2 Venous insufficiency (chronic) (peripheral); Z86.718 Personal history of other venous thrombosis and embolism; I10 Essential (primary) hypertension; I48.0 Paroxysmal atrial fibrillation; E66.01 Morbid (severe) obesity due to excess calories; Z68.42 Body mass index [BMI] 45.0-49.9, adult; I73.9 Peripheral vascular disease, unspecified
CPT/HCPCS: A9270; G0463

== ENCOUNTER 2023-02-15 03:57 | Day surgery (SDC) | payer OTHER | END 2023-02-15 23:02 | disposition home or self-care (01) | LOC: WOUND 03:57 | DX: I87.312 Chronic venous hypertension (idiopathic) with ulcer of left lower extremity (principal); L97.822 Non-pressure chronic ulcer of other part of left lower leg with fat layer exposed; I87.2 Venous insufficiency (chronic) (peripheral); I73.9 Peripheral vascular disease, unspecified; I48.20 Chronic atrial fibrillation, unspecified; I10 Essential (primary) hypertension ==

== ENCOUNTER 2023-02-20 00:19 | Day surgery (SDC) | payer OTHER ==
[2023-02-20] MEDS ORDERED: SULFAMETHOXAZO1 EAC1 PO (11:07)
== END 2023-02-20 23:13 | disposition home or self-care (01) ==
LOC: WOUND 00:19
DX: I87.312 Chronic venous hypertension (idiopathic) with ulcer of left lower extremity (principal); L97.822 Non-pressure chronic ulcer of other part of left lower leg with fat layer exposed; I87.2 Venous insufficiency (chronic) (peripheral); I73.9 Peripheral vascular disease, unspecified; I48.20 Chronic atrial fibrillation, unspecified; I10 Essential (primary) hypertension; H57.9 Unspecified disorder of eye and adnexa; H57.89 Other specified disorders of eye and adnexa; I48.91 Unspecified atrial fibrillation; Z86.718 Personal history of other venous thrombosis and embolism; Z88.1 Allergy status to other antibiotic agents; Z79.01 Long term (current) use of anticoagulants; Z79.899 Other long term (current) drug therapy; Z87.891 Personal history of nicotine dependence
CPT/HCPCS: 99283

== ENCOUNTER 2023-02-27 02:28 | Day surgery (SDC) | payer OTHER ==
[~2023-02-27 02:28] MED LIST changes: +SULFAMETHOXAZO1 EAC1 PO
== END 2023-02-27 22:47 | disposition home or self-care (01) ==
LOC: WOUND 02:28
DX: I87.312 Chronic venous hypertension (idiopathic) with ulcer of left lower extremity (principal); L97.822 Non-pressure chronic ulcer of other part of left lower leg with fat layer exposed; I87.2 Venous insufficiency (chronic) (peripheral); I73.9 Peripheral vascular disease, unspecified; I48.20 Chronic atrial fibrillation, unspecified; I10 Essential (primary) hypertension

== ENCOUNTER 2023-03-06 02:01 | Day surgery (SDC) | payer OTHER | END 2023-03-06 22:38 | disposition home or self-care (01) | LOC: WOUND 02:01 | DX: I87.312 Chronic venous hypertension (idiopathic) with ulcer of left lower extremity (principal); L97.822 Non-pressure chronic ulcer of other part of left lower leg with fat layer exposed; I87.2 Venous insufficiency (chronic) (peripheral); I73.9 Peripheral vascular disease, unspecified; I48.20 Chronic atrial fibrillation, unspecified; I10 Essential (primary) hypertension; I48.0 Paroxysmal atrial fibrillation; E66.01 Morbid (severe) obesity due to excess calories; Z68.42 Body mass index [BMI] 45.0-49.9, adult ==

== ENCOUNTER 2023-03-13 02:15 | Day surgery (SDC) | payer OTHER | END 2023-03-13 22:54 | disposition home or self-care (01) | LOC: WOUND 02:15 | DX: I87.312 Chronic venous hypertension (idiopathic) with ulcer of left lower extremity (principal); L97.822 Non-pressure chronic ulcer of other part of left lower leg with fat layer exposed; I87.2 Venous insufficiency (chronic) (peripheral); I73.9 Peripheral vascular disease, unspecified; I48.20 Chronic atrial fibrillation, unspecified; I10 Essential (primary) hypertension; I48.0 Paroxysmal atrial fibrillation; E66.01 Morbid (severe) obesity due to excess calories | CPT/HCPCS: G0463 ==

== ENCOUNTER 2023-03-14 01:42 | Day surgery (SDC) | payer OTHER | END 2023-03-14 22:37 | disposition home or self-care (01) | LOC: WOUND 01:42 | DX: I87.312 Chronic venous hypertension (idiopathic) with ulcer of left lower extremity (principal); L97.822 Non-pressure chronic ulcer of other part of left lower leg with fat layer exposed; I87.2 Venous insufficiency (chronic) (peripheral); I48.20 Chronic atrial fibrillation, unspecified; I10 Essential (primary) hypertension; I73.9 Peripheral vascular disease, unspecified ==

== ENCOUNTER 2023-03-20 00:46 | Day surgery (SDC) | payer OTHER | END 2023-03-20 22:44 | disposition home or self-care (01) | LOC: WOUND 00:46 | DX: I87.312 Chronic venous hypertension (idiopathic) with ulcer of left lower extremity (principal); L97.822 Non-pressure chronic ulcer of other part of left lower leg with fat layer exposed; I87.2 Venous insufficiency (chronic) (peripheral); I73.9 Peripheral vascular disease, unspecified; I48.20 Chronic atrial fibrillation, unspecified; I10 Essential (primary) hypertension | CPT/HCPCS: G0463 ==

== ENCOUNTER 2023-03-27 01:33 | Day surgery (SDC) | payer OTHER | END 2023-03-27 22:52 | disposition home or self-care (01) | LOC: WOUND 01:33 | DX: I87.312 Chronic venous hypertension (idiopathic) with ulcer of left lower extremity (principal); L97.822 Non-pressure chronic ulcer of other part of left lower leg with fat layer exposed; I87.2 Venous insufficiency (chronic) (peripheral); I73.9 Peripheral vascular disease, unspecified; I48.20 Chronic atrial fibrillation, unspecified; I10 Essential (primary) hypertension ==

== ENCOUNTER 2023-04-04 08:42 | Day surgery (SDC) | payer OTHER | END 2023-04-04 22:47 | disposition home or self-care (01) | LOC: WOUND 08:42 | DX: I87.312 Chronic venous hypertension (idiopathic) with ulcer of left lower extremity (principal); L97.822 Non-pressure chronic ulcer of other part of left lower leg with fat layer exposed; I87.2 Venous insufficiency (chronic) (peripheral); I73.9 Peripheral vascular disease, unspecified; I48.20 Chronic atrial fibrillation, unspecified; I10 Essential (primary) hypertension ==

== ENCOUNTER 2023-04-10 01:06 | Day surgery (SDC) | payer OTHER | END 2023-04-10 22:46 | disposition home or self-care (01) | LOC: WOUND 01:06 | DX: I87.312 Chronic venous hypertension (idiopathic) with ulcer of left lower extremity (principal); L97.822 Non-pressure chronic ulcer of other part of left lower leg with fat layer exposed; I87.2 Venous insufficiency (chronic) (peripheral); I73.9 Peripheral vascular disease, unspecified; I48.20 Chronic atrial fibrillation, unspecified; I10 Essential (primary) hypertension ==

== ENCOUNTER 2023-04-17 01:59 | Day surgery (SDC) | payer OTHER | END 2023-04-17 22:56 | disposition home or self-care (01) | LOC: WOUND 01:59 | DX: I87.312 Chronic venous hypertension (idiopathic) with ulcer of left lower extremity (principal); L97.822 Non-pressure chronic ulcer of other part of left lower leg with fat layer exposed; I87.2 Venous insufficiency (chronic) (peripheral); I48.20 Chronic atrial fibrillation, unspecified; I10 Essential (primary) hypertension; E66.01 Morbid (severe) obesity due to excess calories; Z68.42 Body mass index [BMI] 45.0-49.9, adult; Z86.718 Personal history of other venous thrombosis and embolism ==

== ENCOUNTER 2023-05-08 00:56 | Day surgery (SDC) | payer OTHER | END 2023-05-08 23:07 | disposition home or self-care (01) | LOC: WOUND 00:56 | DX: I87.312 Chronic venous hypertension (idiopathic) with ulcer of left lower extremity (principal); L97.822 Non-pressure chronic ulcer of other part of left lower leg with fat layer exposed; I87.2 Venous insufficiency (chronic) (peripheral); I73.9 Peripheral vascular disease, unspecified; I48.20 Chronic atrial fibrillation, unspecified; I10 Essential (primary) hypertension; Z86.718 Personal history of other venous thrombosis and embolism; I48.0 Paroxysmal atrial fibrillation; E66.01 Morbid (severe) obesity due to excess calories; Z68.42 Body mass index [BMI] 45.0-49.9, adult ==

== ENCOUNTER 2023-05-15 01:54 | Day surgery (SDC) | payer OTHER | END 2023-05-15 22:49 | disposition home or self-care (01) | LOC: WOUND 01:54 | DX: I87.312 Chronic venous hypertension (idiopathic) with ulcer of left lower extremity (principal); I73.9 Peripheral vascular disease, unspecified; I48.20 Chronic atrial fibrillation, unspecified; I10 Essential (primary) hypertension; L97.822 Non-pressure chronic ulcer of other part of left lower leg with fat layer exposed ==

== ENCOUNTER 2023-05-22 01:17 | Day surgery (SDC) | payer OTHER | END 2023-05-23 22:55 | disposition home or self-care (01) | LOC: WOUND 01:17 | DX: I87.312 Chronic venous hypertension (idiopathic) with ulcer of left lower extremity (principal); L97.822 Non-pressure chronic ulcer of other part of left lower leg with fat layer exposed; I87.2 Venous insufficiency (chronic) (peripheral); I73.9 Peripheral vascular disease, unspecified; I48.20 Chronic atrial fibrillation, unspecified; I10 Essential (primary) hypertension ==

== ENCOUNTER 2023-05-29 02:16 | Day surgery (SDC) | payer OTHER | END 2023-05-29 22:44 | disposition home or self-care (01) | LOC: WOUND 02:16 | DX: I87.312 Chronic venous hypertension (idiopathic) with ulcer of left lower extremity (principal); L97.822 Non-pressure chronic ulcer of other part of left lower leg with fat layer exposed; I73.9 Peripheral vascular disease, unspecified; I48.20 Chronic atrial fibrillation, unspecified; I10 Essential (primary) hypertension ==

== ENCOUNTER 2023-06-01 04:05 | Day surgery (SDC) | payer OTHER | END 2023-06-01 22:37 | disposition home or self-care (01) | LOC: WOUND 04:05 | DX: I87.312 Chronic venous hypertension (idiopathic) with ulcer of left lower extremity (principal); L97.822 Non-pressure chronic ulcer of other part of left lower leg with fat layer exposed; I73.9 Peripheral vascular disease, unspecified; I48.20 Chronic atrial fibrillation, unspecified; I10 Essential (primary) hypertension | CPT/HCPCS: G0463 ==

== ENCOUNTER 2023-06-05 02:33 | Day surgery (SDC) | payer OTHER | END 2023-06-05 22:40 | disposition home or self-care (01) | LOC: WOUND 02:33 | DX: I87.312 Chronic venous hypertension (idiopathic) with ulcer of left lower extremity (principal); L97.822 Non-pressure chronic ulcer of other part of left lower leg with fat layer exposed; E66.01 Morbid (severe) obesity due to excess calories; I73.9 Peripheral vascular disease, unspecified; I48.20 Chronic atrial fibrillation, unspecified; I10 Essential (primary) hypertension ==

== ENCOUNTER 2023-06-12 00:46 | Day surgery (SDC) | payer OTHER | END 2023-06-12 22:44 | disposition home or self-care (01) | LOC: WOUND 00:46 | DX: I87.312 Chronic venous hypertension (idiopathic) with ulcer of left lower extremity (principal); L97.822 Non-pressure chronic ulcer of other part of left lower leg with fat layer exposed; I87.2 Venous insufficiency (chronic) (peripheral); I73.9 Peripheral vascular disease, unspecified; I48.20 Chronic atrial fibrillation, unspecified; I10 Essential (primary) hypertension ==

== ENCOUNTER 2023-06-19 02:52 | Day surgery (SDC) | payer OTHER | END 2023-06-19 22:55 | disposition home or self-care (01) | LOC: WOUND 02:52 | DX: I87.312 Chronic venous hypertension (idiopathic) with ulcer of left lower extremity (principal); L97.822 Non-pressure chronic ulcer of other part of left lower leg with fat layer exposed; I87.2 Venous insufficiency (chronic) (peripheral); I73.9 Peripheral vascular disease, unspecified; I48.20 Chronic atrial fibrillation, unspecified; I10 Essential (primary) hypertension ==

== ENCOUNTER 2023-06-26 03:04 | Day surgery (SDC) | payer OTHER | END 2023-06-26 22:55 | disposition home or self-care (01) | LOC: WOUND 03:04 | DX: I87.312 Chronic venous hypertension (idiopathic) with ulcer of left lower extremity (principal); L97.822 Non-pressure chronic ulcer of other part of left lower leg with fat layer exposed; I87.2 Venous insufficiency (chronic) (peripheral); I73.9 Peripheral vascular disease, unspecified; I48.20 Chronic atrial fibrillation, unspecified; I10 Essential (primary) hypertension; I48.0 Paroxysmal atrial fibrillation; E66.01 Morbid (severe) obesity due to excess calories; Z68.42 Body mass index [BMI] 45.0-49.9, adult ==

== ENCOUNTER 2023-07-03 03:39 | Day surgery (SDC) | payer OTHER | END 2023-07-03 22:49 | disposition home or self-care (01) | LOC: WOUND 03:39 | DX: I87.312 Chronic venous hypertension (idiopathic) with ulcer of left lower extremity (principal); L97.822 Non-pressure chronic ulcer of other part of left lower leg with fat layer exposed; I87.2 Venous insufficiency (chronic) (peripheral); I73.9 Peripheral vascular disease, unspecified; I48.20 Chronic atrial fibrillation, unspecified; I10 Essential (primary) hypertension ==

== ENCOUNTER 2023-07-10 04:33 | Day surgery (SDC) | payer OTHER | END 2023-07-10 23:00 | disposition home or self-care (01) | LOC: WOUND 04:33 | DX: I87.313 Chronic venous hypertension (idiopathic) with ulcer of bilateral lower extremity (principal); L97.822 Non-pressure chronic ulcer of other part of left lower leg with fat layer exposed; L97.812 Non-pressure chronic ulcer of other part of right lower leg with fat layer exposed; I10 Essential (primary) hypertension; E66.01 Morbid (severe) obesity due to excess calories; I73.9 Peripheral vascular disease, unspecified; I48.20 Chronic atrial fibrillation, unspecified ==

== ENCOUNTER 2023-07-17 02:02 | Day surgery (SDC) | payer OTHER | END 2023-07-17 22:48 | disposition home or self-care (01) | LOC: WOUND 02:02 | DX: I87.312 Chronic venous hypertension (idiopathic) with ulcer of left lower extremity (principal); L97.822 Non-pressure chronic ulcer of other part of left lower leg with fat layer exposed; I73.9 Peripheral vascular disease, unspecified; I10 Essential (primary) hypertension; I48.20 Chronic atrial fibrillation, unspecified; E66.01 Morbid (severe) obesity due to excess calories ==

== ENCOUNTER 2023-07-26 05:20 | Day surgery (SDC) | payer OTHER | END 2023-07-26 22:48 | disposition home or self-care (01) | LOC: WOUND 05:20 | DX: I87.312 Chronic venous hypertension (idiopathic) with ulcer of left lower extremity (principal); L97.822 Non-pressure chronic ulcer of other part of left lower leg with fat layer exposed; I87.2 Venous insufficiency (chronic) (peripheral); I73.9 Peripheral vascular disease, unspecified; I48.20 Chronic atrial fibrillation, unspecified; I10 Essential (primary) hypertension ==

== ENCOUNTER 2023-08-03 05:04 | Day surgery (SDC) | payer OTHER | END 2023-08-03 22:47 | disposition home or self-care (01) | LOC: WOUND 05:04 | DX: L97.822 Non-pressure chronic ulcer of other part of left lower leg with fat layer exposed (principal); L97.312 Non-pressure chronic ulcer of right ankle with fat layer exposed; I87.2 Venous insufficiency (chronic) (peripheral); I73.9 Peripheral vascular disease, unspecified; I48.20 Chronic atrial fibrillation, unspecified; I10 Essential (primary) hypertension; E66.01 Morbid (severe) obesity due to excess calories ==

== ENCOUNTER 2023-08-10 02:22 | Day surgery (SDC) | payer OTHER | END 2023-08-10 22:48 | disposition home or self-care (01) | LOC: WOUND 02:22 | DX: I87.312 Chronic venous hypertension (idiopathic) with ulcer of left lower extremity (principal); L97.822 Non-pressure chronic ulcer of other part of left lower leg with fat layer exposed; I87.2 Venous insufficiency (chronic) (peripheral); I73.9 Peripheral vascular disease, unspecified; I48.20 Chronic atrial fibrillation, unspecified; I10 Essential (primary) hypertension ==

== ENCOUNTER 2023-08-14 03:42 | Day surgery (SDC) | payer OTHER | END 2023-08-14 22:57 | disposition home or self-care (01) | LOC: WOUND 03:42 | DX: I87.312 Chronic venous hypertension (idiopathic) with ulcer of left lower extremity (principal); L97.822 Non-pressure chronic ulcer of other part of left lower leg with fat layer exposed; I87.2 Venous insufficiency (chronic) (peripheral); I73.9 Peripheral vascular disease, unspecified; I10 Essential (primary) hypertension; I48.20 Chronic atrial fibrillation, unspecified; E66.01 Morbid (severe) obesity due to excess calories ==

== ENCOUNTER 2023-08-21 03:38 | Day surgery (SDC) | payer OTHER | END 2023-08-21 22:51 | disposition home or self-care (01) | LOC: WOUND 03:38 | DX: I87.312 Chronic venous hypertension (idiopathic) with ulcer of left lower extremity (principal); L97.822 Non-pressure chronic ulcer of other part of left lower leg with fat layer exposed; I10 Essential (primary) hypertension; I48.0 Paroxysmal atrial fibrillation; E66.01 Morbid (severe) obesity due to excess calories; I87.2 Venous insufficiency (chronic) (peripheral); I48.20 Chronic atrial fibrillation, unspecified; Z68.42 Body mass index [BMI] 45.0-49.9, adult ==

== ENCOUNTER 2023-08-28 03:22 | Day surgery (SDC) | payer OTHER | END 2023-08-28 23:35 | disposition home or self-care (01) | LOC: WOUND 03:22 | DX: I87.312 Chronic venous hypertension (idiopathic) with ulcer of left lower extremity (principal); L97.822 Non-pressure chronic ulcer of other part of left lower leg with fat layer exposed; I10 Essential (primary) hypertension; I48.0 Paroxysmal atrial fibrillation; E66.01 Morbid (severe) obesity due to excess calories; I73.9 Peripheral vascular disease, unspecified ==

== ENCOUNTER 2023-09-18 08:00 | Day surgery (SDC) | payer OTHER | END 2023-09-18 22:43 | disposition home or self-care (01) | LOC: WOUND 08:00 | DX: I87.312 Chronic venous hypertension (idiopathic) with ulcer of left lower extremity (principal); L97.822 Non-pressure chronic ulcer of other part of left lower leg with fat layer exposed; I87.2 Venous insufficiency (chronic) (peripheral); I73.9 Peripheral vascular disease, unspecified; I48.20 Chronic atrial fibrillation, unspecified; I10 Essential (primary) hypertension; E66.01 Morbid (severe) obesity due to excess calories; Z68.42 Body mass index [BMI] 45.0-49.9, adult ==

== ENCOUNTER 2023-09-25 08:00 | Day surgery (SDC) | payer OTHER | END 2023-09-26 22:35 | disposition home or self-care (01) | LOC: WOUND 08:00 | DX: I87.312 Chronic venous hypertension (idiopathic) with ulcer of left lower extremity (principal); L97.822 Non-pressure chronic ulcer of other part of left lower leg with fat layer exposed; I48.0 Paroxysmal atrial fibrillation; I48.20 Chronic atrial fibrillation, unspecified; E66.01 Morbid (severe) obesity due to excess calories; I87.2 Venous insufficiency (chronic) (peripheral); I73.9 Peripheral vascular disease, unspecified; I10 Essential (primary) hypertension ==